=== PATIENT | female | born 1950 | race African-American/Black ===

== ENCOUNTER 2016-07-03 13:29 | Observation (INO) | payer BC ==
[~2016-07-03] VITALS: Ht 167.6 cm; Wt 89.4 kg
[~2016-07-03 13:29] MED LIST: AMLO10TA4 PO; AMLO5TAB4 PO; ASPI-482 PO; ATOR40TA PO; CETI10TA16 PO; CHOL500016 PO; CITA20TA5 PO; DULO30CA2 PO; LISI1TAB5 PO; LOSA1TAB12 PO; METF500T4 PO; NAPR500T8 PO; OLME1TAB PO; RANI150T2 PO; TIOT18CA IH; TIZA4CAP3 PO; TRAM50TA PO; VENTOLIN HFA18 GM INH
[2016-07-03] MEDS ORDERED: ASPIRIN CHEWABLE 81 MG TABLET. PO ONE (14:00)
--- NOTE | 2016-07-03 14:04 | RAD ---
Portable chest, 07/03/2016: History: Hypertension, chest pain Comparison is made to a study from 12/13/2015. The heart size and pulmonary vascularity are normal. No pulmonary infiltrates are seen. There is no evidence of pleural fluid. IMPRESSION: No acute cardiopulmonary abnormality is detected.
[2016-07-03 14:36] LABS: BASO % 1 % (0-3); EOS % 2 % (0-3); HEMATOCRIT 45.3 % (36.0-47.0); HEMOGLOBIN 15.5 g/dL (12.0-15.5); LYMPH # 2.1 x10^3/uL (1.0-4.8); LYMPH % 47 % (24-48); MEAN CORPUSCULAR HEMOGLOBIN 32 pg (25-35); MEAN CORPUSCULAR HGB CONC 34 g/dL (31-37); MEAN CORPUSCULAR VOLUME 95 fL (79-100); MONO % 8 % (0-9); NEUT % 43 % (31-73); PLATELET COUNT 296 x10^3/uL (140-400); RED BLOOD COUNT 4.79 x10^6/uL (3.50-5.40); RED CELL DISTRIBUTION WIDTH 14.3 % (11.5-14.5); WHITE BLOOD COUNT 4.4 x10^3/uL (4.0-11.0)
--- NOTE | 2016-07-03 14:51 | RAD ---
CT of the head without contrast, 07/03/2016: History: Altered mental status, syncope, head injury Comparison is made to a study from 12/13/2015. The ventricles are within normal limits in size. There is no shift of the midline structures. There is no evidence of acute intracranial hemorrhage or mass effect. IMPRESSION: No acute intracranial abnormality is detected. PQRS Compliance Statement: One or more of the following individualized dose reduction techniques were utilized for this examination: 1. Automated exposure control 2. Adjustment of the mA and/or kV according to patient size 3. Use of iterative reconstruction technique
[2016-07-03 14:52] LABS: CALCIUM 9.6 mg/dL (8.5-10.1); CREATININE 0.9 mg/dL (0.6-1.0); GFR 75.6; POTASSIUM 4.7 mmol/L (3.5-5.1)
[2016-07-03 14:58] LABS: ALBUMIN 4.2 g/dL (3.4-5.0); DIRECT BILIRUBIN 0.2 mg/dL (0.0-0.2); TOTAL BILIRUBIN 0.7 mg/dL (0.2-1.0); TOTAL PROTEIN 7.6 g/dL (6.4-8.2)
[2016-07-03] MEDS ORDERED: ONDANSETRON PF 4 MG/2 ML VIAL. IV PRN (15:30)
--- NOTE | 2016-07-03 15:39 | PHYS DOC ---
Past Medical History Past Medical History: Anxiety, Asthma, Bronchitis, CHF, COPD, CVA, Depression, Diabetes-Type II, Hypertension, Hypothyroid, Pneumonia Past Surgical History: Hysterectomy, Tonsillectomy, Other Additional Past Surgical Histo: partial thyroidectomy, varicose veins, cataracts,BLADDER REPAIR Alcohol Use: Heavy Drug Use: None Adult General Chief Complaint Chief Complaint: CHEST PAIN HPI HPI 66-year-old female with a history of diabetes hypertension presenting to the emergency department today with chest pain. She describes her chest pain is on the left side nonradiating intermittent and started approximately 8 AM this morning. It is sharp in nature and worse with exertion and deep breaths. It improves with rest. She denies unilateral leg swelling hemoptysis personal or family history of blood clotting disorders. She denies diaphoresis. Review of systems is negative for abdominal pain nausea vomiting diaphoresis fevers or chills. All other review of systems is negative unless otherwise noted in history of present illness. Review of Systems Review of Systems SEE ABOVE. Current Medications Current Medications Current Medications Medications (Trade) Dose Ordered Sig/Vazquez Start Time Stop Time Status Last Admin Dose Admin Aspirin (Children'S Aspirin) 324 mg 1X ONCE 07/03/16 14:00 07/03/16 14:01 DC 07/03/16 13:58 324 MG Morphine Sulfate 2 mg PRN Q2HR PRN 07/03/16 15:30 07/04/16 15:29 UNV Nitroglycerin (Nitrostat) 0.4 mg PRN Q5MIN PRN 07/03/16 15:30 07/04/16 15:29 UNV Ondansetron HCl (Zofran) 4 mg PRN Q8HRS PRN 07/03/16 15:30 07/04/16 15:29 UNV Allergies Allergies Allergies Coded Allergies Type Severity Reaction Last Updated Verified No Known Drug Allergies 08/10/13 No Physical Exam Physical Exam Constitutional: Well developed, well nourished, no acute distress, non-toxic appearance. HENT: Normocephalic, atraumatic, bilateral external ears normal, oropharynx moist, no oral exudates, nose normal. [] Eyes: PERRLA, EOMI, conjunctiva normal, no discharge. Neck: Normal range of motion, no tenderness, supple, no stridor. [] Cardiovascular:Heart rate regular rhythm, no murmur Lungs & Thorax: Bilateral breath sounds clear to auscultation [] Abdomen: Bowel sounds normal, soft, no tenderness, no masses, no pulsatile masses. [] Skin: Warm, dry, no erythema, no rash. Back: No tenderness, no CVA tenderness. [] Extremities: No tenderness, no cyanosis, no clubbing, ROM intact, no edema. Neurologic: Alert and oriented X 3, normal motor function, normal sensory function, no focal deficits noted. [] Psychologic: Affect normal, judgement normal, mood normal. Current Patient Data Vital Signs Vital Signs Date Time Temp Pulse Resp B/P (MAP) Pulse Ox O2 Delivery O2 Flow Rate FiO2 07/03/16 13:50 97.8 77 19 187/96 (126) 98 Room Air 97.8 Lab Values Laboratory Tests Test 07/03/16 13:45 White Blood Count 4.4 x10^3/uL (4.0-11.0) Red Blood Count 4.79 x10^6/uL (3.50-5.40) Hemoglobin 15.5 g/dL (12.0-15.5) Hematocrit 45.3 % (36.0-47.0) Mean Corpuscular Volume 95 fL (79-100) Mean Corpuscular Hemoglobin 32 pg (25-35) Mean Corpuscular Hemoglobin Concent 34 g/dL (31-37) Red Cell Distribution Width 14.3 % (11.5-14.5) Platelet Count 296 x10^3/uL (140-400) Neutrophils (%) (Auto) 43 % (31-73) Lymphocytes (%) (Auto) 47 % (24-48) Monocytes (%) (Auto) 8 % (0-9) Eosinophils (%) (Auto) 2 % (0-3) Basophils (%) (Auto) 1 % (0-3) Neutrophils # (Auto) 1.9 x10^3uL (1.8-7.7) Lymphocytes # (Auto) 2.1 x10^3/uL (1.0-4.8) Monocytes # (Auto) 0.3 x10^3/uL (0.0-1.1) Eosinophils # (Auto) 0.1 x10^3/uL (0.0-0.7) Basophils # (Auto) 0.0 x10^3/uL (0.0-0.2) Sodium Level 145 mmol/L (136-145) Potassium Level 4.7 mmol/L (3.5-5.1) Chloride Level 107 mmol/L (98-107) Carbon Dioxide Level 26 mmol/L (21-32) Anion Gap 12 (6-14) Blood Urea Nitrogen 12 mg/dL (7-20) Creatinine 0.9 mg/dL (0.6-1.0) Estimated GFR (Cockcroft-Gault) 75.6 Glucose Level 104 mg/dL (70-99) H Calcium Level 9.6 mg/dL (8.5-10.1) Total Bilirubin 0.7 mg/dL (0.2-1.0) Direct Bilirubin 0.2 mg/dL (0.0-0.2) Aspartate Amino Transferase (AST) 17 U/L (15-37) Alanine Aminotransferase (ALT) 20 U/L (14-59) Alkaline Phosphatase 76 U/L (46-116) Troponin I Quantitative < 0.017 ng/mL (0.000-0.055) AI-Plp-J-Type Natriuretic Peptide 90 pg/mL (0-124) Total Protein 7.6 g/dL (6.4-8.2) Albumin 4.2 g/dL (3.4-5.0) Lipase 128 U/L (73-393) Laboratory Tests 07/03/16 13:45 Laboratory Tests 07/03/16 13:45 EKG EKG [] EKG shows sinus rhythm with a regular rate. [place] is mildly leftward. ST segments congruent. Not consistent with ACS. Radiology/Procedures Radiology/Procedures []Chest x-ray reviewed by myself shows no obvious infiltrate or pneumothorax present. No obvious acute cardiopulmonary process present. Course & Med Decision Making Course & Med Decision Making Pertinent Labs and Imaging studies reviewed. (See chart for details) [] 66-year-old female presenting to the emergency department today with chest pain. Vital signs unremarkable. Pertinent physical exam findings were unremarkable. EKG unremarkable. Troponin negative. Given the patient's age and risk factors she was admitted for further evaluation workup and care including cardiology consultation. The patient was then discharged home in stable condition to follow up with their primary care physician over the next 2-3 days. They were to return if their symptoms worsened or if they were concerned for any reason. [id number] discharge instructions and return precautions were given. Patient's questions were answered to their satisfaction. Patient is comfortable plan. Dragon Disclaimer Dragon Disclaimer This electronic medical record was generated, in whole or in part, using a voice recognition dictation system. Departure Departure Impression: Primary Impression: Chest pain Disposition: ADMITTED INPATIENT Admitting Physician: Presley Cam Condition: STABLE Referrals: PRESLEY CAM MD (PCP) EMMA PINEDO MD July 03, 2016 15:39
[2016-07-03] MEDS: NITROGLYCERIN SUBLINGUAL 0.4 MG BOTTLE OF 25. SL PRN ×2 (15:51→16:03)
--- NOTE | 2016-07-03 15:58 | PDOC2 ---
DERIK PANTOJA BRICK LOADER 07/03/16 1558: CARDIAC CONSULT DATE OF CONSULT Date of Consult DATE: 07/03/16 TIME: 15:43 REASON FOR CONSULT Reason for Consult: Chest Pain REFERRING PHYSICIAN Referring Physician: Dr. Dillon SOURCE Source: Chart review, Patient HISTORY OF PRESENT ILLNESS HISTORY OF PRESENT ILLNESS This is a 66 yo female who presented with complaints of chest pain. Patient reports pain began awakening this morning around 8am. Located in her left chest. Describes as stabbing and aching. Worsened with ceratin movements and by pressing on the left chest. Pain has been constant since this morning. Associated with mild SOA. No dizziness, diaphoresis, nausea/vomiting. Went to PT today; therapist checked BP and was concerned it was too high and recommended that she come to the emergency room. Patient reports doing some heavy lifting and work recently, which is abnormal for her. Reports compliance with medications. PAST MEDICAL HISTORY Past Medical History Cardiovascular: HTN, Hyperlipidemia, Other (PVD) Pulmonary: COPD, Pneumonia CENTRAL NERVOUS SYSTEM: CVA, Peripheral neuropathy GI: GERD Psych: Anxiety Musculoskeletal: low back pain, Osteoarthritis Rheumatologic: No pertinent hx Infectious disease: No pertinent hx ENT: No pertinent hx Renal/: No pertinent hx Endocrine: Diabetes (2), Hypothyroidism Dermatology: No pertinent hx PAST SURGICAL HISTORY Past Surgical History Hysterectomy, Other (bladder suspension; thyroidectomy partial) FAMILY HISTORY Family History: Hypertension SOCIAL HISTORY Social History Smoke: <1 pack per day (>40 yrs) ALCOHOL: occasional Drugs: None Lives: with Family CURRENT MEDICATIONS CURRENT MEDICATIONS Current Medications Medications (Trade) Dose Ordered Sig/Vazquez Route PRN Reason Start Time Stop Time Status Last Admin Dose Admin Aspirin (Children'S Aspirin) 324 mg 1X ONCE PO 07/03/16 14:00 07/03/16 14:01 DC 07/03/16 13:58 ALLERGIES ALLERGIES: Coded Allergies: No Known Drug Allergies (Unverified , 08/10/13) ROS Review of System 14 point ROS conducted with pertinent positives noted above in HPI. PHYSICAL EXAM PHYSICAL EXAM General: Alert, Oriented X3, Cooperative, mild distress HEENT: Atraumatic, Mucous membr. moist/pink Lungs: Clear to auscultation, Normal air movement, left chest significant tenderness upon palpation Heart: Regular rate, Normal S1, Normal S2, Other (2/6 systolic murmur to LLS border) Abdomen: Soft, No tenderness Extremities: no edema Skin: No breakdown, No significant lesion Neuro: Normal speech, Sensation intact Psych/Mental Status: Mental status NL, Mood NL MUSCULOSKELETAL: Osteoarthritic changes both hands, VITALS VITALS Vital Signs Date Time Temp Pulse Resp B/P (MAP) Pulse Ox O2 Delivery O2 Flow Rate FiO2 07/03/16 13:50 97.8 77 19 187/96 (126) 98 Room Air 97.8 LABS Lab: Laboratory Tests Test 07/03/16 13:45 White Blood Count 4.4 x10^3/uL (4.0-11.0) Red Blood Count 4.79 x10^6/uL (3.50-5.40) Hemoglobin 15.5 g/dL (12.0-15.5) Hematocrit 45.3 % (36.0-47.0) Mean Corpuscular Volume 95 fL (79-100) Mean Corpuscular Hemoglobin 32 pg (25-35) Mean Corpuscular Hemoglobin Concent 34 g/dL (31-37) Red Cell Distribution Width 14.3 % (11.5-14.5) Platelet Count 296 x10^3/uL (140-400) Neutrophils (%) (Auto) 43 % (31-73) Lymphocytes (%) (Auto) 47 % (24-48) Monocytes (%) (Auto) 8 % (0-9) Eosinophils (%) (Auto) 2 % (0-3) Basophils (%) (Auto) 1 % (0-3) Neutrophils # (Auto) 1.9 x10^3uL (1.8-7.7) Lymphocytes # (Auto) 2.1 x10^3/uL (1.0-4.8) Monocytes # (Auto) 0.3 x10^3/uL (0.0-1.1) Eosinophils # (Auto) 0.1 x10^3/uL (0.0-0.7) Basophils # (Auto) 0.0 x10^3/uL (0.0-0.2) Sodium Level 145 mmol/L (136-145) Potassium Level 4.7 mmol/L (3.5-5.1) Chloride Level 107 mmol/L (98-107) Carbon Dioxide Level 26 mmol/L (21-32) Anion Gap 12 (6-14) Blood Urea Nitrogen 12 mg/dL (7-20) Creatinine 0.9 mg/dL (0.6-1.0) Estimated GFR (Cockcroft-Gault) 75.6 Glucose Level 104 mg/dL (70-99) Calcium Level 9.6 mg/dL (8.5-10.1) Total Bilirubin 0.7 mg/dL (0.2-1.0) Direct Bilirubin 0.2 mg/dL (0.0-0.2) Aspartate Amino Transf (AST/SGOT) 17 U/L (15-37) Alanine Aminotransferase (ALT/SGPT) 20 U/L (14-59) Alkaline Phosphatase 76 U/L (46-116) Troponin I Quantitative < 0.017 ng/mL (0.000-0.055) VL-Czs-D-Type Natriuretic Peptide 90 pg/mL (0-124) Total Protein 7.6 g/dL (6.4-8.2) Albumin 4.2 g/dL (3.4-5.0) Lipase 128 U/L (73-393) ECHOCARDIOGRAM ECHOCARDIOGRAM <Conclusion> The left ventricle is normal size. The left ventricular systolic function is normal and the ejection fraction is within normal range. The Ejection Fraction is 60-65%. There is no significant aortic valvular stenosis. Doppler and Color Flow revealed no significant aortic regurgitation. Doppler and Color Flow revealed trace mitral valve regurgitation. Doppler and Color Flow revealed trace to mild tricuspid regurgitation. The PA pressure was estimated at 32 mmHg. DATE: 06/03/15 1704 HEART CATH HEART CATH Conclusion Normal left main coronary artery. No significant intraluminal coronary artery disease appreciated. Normal left ventricular systolic function with visually estimated ejection fraction of 60-65%. Recommendations Risk factor modification should be continued. DATE: 08/11/13 1140 ASSESSMENT/PLAN ASSESSMENT/PLAN 1. Chest pain, atypical [facility] without significant coronary disease. Echo 05/24 with preserve LV function as above. Initial troponin normal, continue with series EKG SR. Doubt ACS. most probably MSK in origin as pain is easily reproducible with palpation to left chest. will monitor overnight and likely discharge in am with consideration of repeat echo on an outpatient basis. 2. Accelerated HTN resume home antiHTN therapy renal artery duplex 05/24 without evidence of NORMA monitor trend to assess need for further titration Hydralazine IV PRN 3. DM2 treatment per IM 4. HLP check lipids statin therapy 5. Tobaccoism cessation discussed and encouraged. Problems: JOSE BANDA MD 07/03/16 1851: CARDIAC CONSULT ALLERGIES ALLERGIES: Coded Allergies: No Known Drug Allergies (Unverified , 08/10/13) ASSESSMENT/PLAN ASSESSMENT/PLAN Patient seen and examined. Agree with CHROME TANNER's assessment and plan. CP atypical and most probably musculoskeletal. Initial trop normal - monitor series. Doubt ACS. Plan for stress test as outpatient if serial enz negative. Resume home antihypertensives for better BP control Thank you for your consultation. Problems: DERIK PANTOJA APRN July 03, 2016 15:58 JOSE BANDA MD July 03, 2016 18:51
--- NOTE | 2016-07-03 16:35 | EKG ---
[facility] [address] [place] [address] Test Date: 2016-07-03 Test Time: 13:35:24 Pat Name: ANTONIETTA RM Department: Room: [facility] Gender: F Drainman: RAMONITA : 1950 Requested By: EMMA PINEDO Order Number: [id number] Reading MD: Stacia Mccormack Measurements Intervals [place] Rate: 72 P: 51 AL: 130 QRS: -7 QRSD: 86 T: 38 QT: 374 QTc: 416 Interpretive Statements SINUS RHYTHM LEFTWARD AXIS Electronically Signed On 07-05-2016 15:34:15 CDT by Stacia Mccormack
[2016-07-03] MEDS ORDERED: hydrALAZINE 20 MG/ML VIAL. IVP PRN (16:45)
[2016-07-03 17:00] VITALS: BP 142/83
[2016-07-03] MEDS: ASPIRIN ENTERIC COATED 81 MG TABLET.DR. PO SCH (17:16)
[2016-07-03 17:59] VITALS: BP 142/83
[2016-07-03] MEDS ORDERED: DULO60CA44 PO (18:16)
[2016-07-03] MEDS ORDERED: GABA-586 PO (18:16)
[2016-07-03] MEDS ORDERED: METF500T4 PO (18:16)
[2016-07-03] MEDS: metFORMIN 500 MG TABLET PO SCH (18:24)
[2016-07-03] MEDS: GABAPENTIN 300 MG CAPSULE. PO SCH (19:53)
[2016-07-03] MEDS: MORPHINE SULFATE 2 MG/ML DISP.SYRIN. IV PRN (19:53)
[2016-07-03 19:59] VITALS: BP 118/77
[2016-07-03] MEDS ORDERED: ATORVASTATIN CALCIUM 40 MG TABLET. PO SCH (21:00)
[2016-07-03 23:59] VITALS: BP 134/82
[2016-07-04 03:59] VITALS: BP 140/93
[2016-07-04 06:01] LABS: CALCIUM 8.8 mg/dL (8.5-10.1); CREATININE 0.9 mg/dL (0.6-1.0); GFR 75.6
[2016-07-04 06:08] LABS: CHOLESTEROL/HDL RATIO 2.9
[2016-07-04 06:11] LABS: BASO # 0.1 x10^3/uL (0.0-0.2); BASO % 1 % (0-3); EOS % 2 % (0-3); HEMATOCRIT 40.8 % (36.0-47.0); HEMOGLOBIN 13.5 g/dL (12.0-15.5); LYMPH # 2.6 x10^3/uL (1.0-4.8); LYMPH % 53 % (24-48); MEAN CORPUSCULAR HEMOGLOBIN 32 pg (25-35); MEAN CORPUSCULAR HGB CONC 33 g/dL (31-37); MEAN CORPUSCULAR VOLUME 95 fL (79-100); MONO % 8 % (0-9); NEUT % 35 % (31-73); PLATELET COUNT 276 x10^3/uL (140-400); RED BLOOD COUNT 4.29 x10^6/uL (3.50-5.40); RED CELL DISTRIBUTION WIDTH 14.5 % (11.5-14.5); WHITE BLOOD COUNT 4.9 x10^3/uL (4.0-11.0)
[2016-07-04 07:55] VITALS: BP 148/89
[2016-07-04] MEDS ORDERED: amLODIPine BESYLATE 10 MG TABLET PO SCH (09:00)
[2016-07-04] MEDS ORDERED: hydroCHLOROthiazide 25 MG TABLET PO SCH (09:00)
[2016-07-04] MEDS ORDERED: LOSARTAN POTASSIUM 50 MG TABLET. PO SCH (09:00)
[2016-07-04] MEDS: metFORMIN 500 MG TABLET PO SCH (09:08)
[2016-07-04] MEDS: ASPIRIN ENTERIC COATED 81 MG TABLET.DR. PO SCH (09:09)
[2016-07-04] MEDS: GABAPENTIN 300 MG CAPSULE. PO SCH (09:10)
[2016-07-04] MEDS ORDERED: tiZANidine 4 MG TABLET. PO PRN (09:15)
[2016-07-04] MEDS ORDERED: traMADol 50 MG TABLET PO PRN (09:15)
--- NOTE | 2016-07-04 09:15 | PDOC1 ---
History and Physical Date of Admission Date of Admission DATE: 07/03/16 Identification/Chief Complaint Chief Complaint Chest pain Problems: Source Source: Patient History of Present Illness History of Present Illness Pt states that she was starting physical therapy yesterday when she started to complain of left sided chest pain. Her BP was taken and found to be elevated and she was sent to the ER. Pt was admitted for chest pain rule out. Pt states that the pain started yesterday morning when she got out of bed; more on the upper part of the left side of her chest. Throughout the day pain seemed to radiate down into her nipple. She says she is still having the pain now. It is constant. Nothing makes the pain better or worse. She thinks the pain is all the way across her chest now. Was helping her sister move boxes the other day. She has had episodes of chest pain before but they usually disappear within 24 hours. Past Medical History Cardiovascular: HTN, Hyperlipidemia, Other Pulmonary: COPD, Pneumonia CENTRAL NERVOUS SYSTEM: CVA, Periperal neuropathy GI: GERD Heme/Onc: No pertinent hx Hepatobiliary: Cirrhosis Psych: Anxiety Musculoskeletal: low back pain, Osteoarthritis Rheumatologic: Fibromyalgia Infectious disease: No pertinent hx ENT: No pertinent hx Renal/: No pertinent hx Endocrine: Diabetes, Hypothyroidism Dermatology: No pertinent hx Past Surgical History Past Surgical History: Hysterectomy, Other (bladder surgery, thyroidectomy) Family History Family History: Cancer (Prostate), Chronic Bronchitis, Hypertension, Other (DVT ) Social History Smoke: <1 pack per day ALCOHOL: occassional Drugs: None Current Problem List Problem List Problems Medical Problems: (1) Chest pain Status: Acute Problems: Current Medications Current Medications Current Medications Aspirin (Children'S Aspirin) 324 mg 1X ONCE PO Last administered on 07/03/16 13:58; Start 07/03/16 at 14:00; Stop 07/03/16 at 14:01; Status DC Ondansetron HCl (Zofran) 4 mg PRN Q8HRS PRN IV NAUSEA/VOMITING; Start 07/03/16 at 15:30; Stop 07/04/16 at 15:29 Morphine Sulfate 2 mg PRN Q2HR PRN IV PAIN Last administered on 07/03/16 19:53 ; Start 07/03/16 at 15:30; Stop 07/04/16 at 15:29 Nitroglycerin (Nitrostat) 0.4 mg PRN Q5MIN PRN SL CHEST PAIN Last administered on 07/03/16 16:03; Start 07/03/16 at 15:30; Stop 07/04/16 at 15:29 Amlodipine Besylate (Norvasc) 10 mg DAILY PO ; Start 07/04/16 at 09:00 Aspirin (Ecotrin) 81 mg DAILY PO ; Start 07/03/16 at 17:00 Atorvastatin Calcium (Lipitor) 40 mg QHS PO Last administered on 07/03/16 19: 53; Start 07/03/16 at 21:00 Losartan Potassium (Cozaar) 100 mg DAILY PO ; Start 07/04/16 at 09:00 Hydralazine HCl (Apresoline) 10 mg PRN Q4HRS PRN IVP ELEVATED BP, SEE COMMENTS ; Start 07/03/16 at 16:45 Hydrochlorothiazide (Hydrodiuril) 25 mg DAILY PO ; Start 07/04/16 at 09:00 Metformin HCl (Glucophage) 500 mg BIDWMEALS PO Last administered on 07/03/16 18:24; Start 07/03/16 at 18:30 Gabapentin (Neurontin) 300 mg TID PO Last administered on 07/03/16 19:53; Start 07/03/16 at 21:00 Active Scripts Active Norvasc (Amlodipine Besylate) 10 Mg Tablet 10 Mg PO DAILY Hyzaar 100-25 Tablet (Losartan/Hydrochlorothiazide) 1 Each Tablet 1 Tab PO DAILY Zanaflex (Tizanidine Hcl) 4 Mg Capsule 1 Cap PO QHS Lipitor (Atorvastatin Calcium) 40 Mg Tablet 1 Tab PO DAILY Reported Duloxetine Hcl 60 Mg Capsule. 60 Mg PO DAILY Gabapentin 300 Mg Capsule 300 Mg PO TID Metformin Hcl 500 Mg Tablet 500 Mg PO BIDWMEALS Vitamin D3 (Cholecalciferol (Vitamin D3)) 5,000 Unit Tablet 50,000 Unit PO WEEKLY Naproxen 500 Mg Tablet. 500 Mg PO DAILY Tramadol Hcl 50 Mg Tablet 50 Mg PO BID PRN Spiriva (Tiotropium [place]) 18 Mcg Cap.w.dev 2 Inh IH DAILY Aspir 81 (Aspirin) 81 Mg Tablet. 81 Mg PO DAILY Ranitidine Hcl 150 Mg Tablet 150 Mg PO BID Allergies Allergies: Coded Allergies: No Known Drug Allergies (Unverified , 08/10/13) ROS General: No: Chills, Night Sweats PSYCHOLOGICAL ROS: No: Anxiety, Depression Eyes: No Decreased vision, No Eye Pain HEENT: No: Nasal congestion, Sore Throat ALLERGY AND IMMUNOLOGY: No: Hives, Post Nasal Drip Hematological and Lymphatic: No: Bleeding Problems, Blood Clots Breast: No New/Changing Breast Lumps, No Nipple discharge Respiratory: YES: Cough, Shortness of breath, No: Wheezing Cardiovascular: yes Chest Pain, No Palpitations, No Edema Gastrointestinal: Yes Nausea, Yes Vomiting, Yes Abdominal Pain, Yes Diarrhea, Yes Other (pt has N/V/D about once a week) Genitourinary: No Dysuria, No Urgency Musculoskeletal: No Joint Pain, No Muscle Pain Neurological: Yes Numbness/Tingling, No Impaired Coord/balance Skin: No Rash, No Skin Lesion Changes Physical Exam General: Alert, Oriented X3, Cooperative, No acute distress HEENT: Atraumatic, PERRLA, EOMI, Mucous membr. moist/pink Lungs: Clear to auscultation, Normal air movement Heart: RRR, no rubs, no gallops, no murmurs, other (TTP over entire chest wall) Abdomen: Normal bowel sounds, Soft, No tenderness, No hepatosplenomegaly Extremities: No clubbing, No cyanosis, No edema Skin: No rashes, No breakdown, No significant lesion Neuro: Normal speech, Normal tone, Sensation intact, Cranial nerves 3-12 NL Psych/Mental Status: Mental status NL, Mood NL Vitals Vitals Vital Signs Date Time Temp Pulse Resp B/P (MAP) Pulse Ox O2 Delivery O2 Flow Rate FiO2 07/04/16 07:55 98.2 67 18 148/89 (108) 98 Nasal Cannula 2.0 98.2 Labs Labs Laboratory Tests Test 07/03/16 13:45 07/03/16 17:18 07/03/16 21:00 07/03/16 21:26 White Blood Count 4.4 x10^3/uL (4.0-11.0) Red Blood Count 4.79 x10^6/uL (3.50-5.40) Hemoglobin 15.5 g/dL (12.0-15.5) Hematocrit 45.3 % (36.0-47.0) Mean Corpuscular Volume 95 fL (79-100) Mean Corpuscular Hemoglobin 32 pg (25-35) Mean Corpuscular Hemoglobin Concent 34 g/dL (31-37) Red Cell Distribution Width 14.3 % (11.5-14.5) Platelet Count 296 x10^3/uL (140-400) Neutrophils (%) (Auto) 43 % (31-73) Lymphocytes (%) (Auto) 47 % (24-48) Monocytes (%) (Auto) 8 % (0-9) Eosinophils (%) (Auto) 2 % (0-3) Basophils (%) (Auto) 1 % (0-3) Neutrophils # (Auto) 1.9 x10^3uL (1.8-7.7) Lymphocytes # (Auto) 2.1 x10^3/uL (1.0-4.8) Monocytes # (Auto) 0.3 x10^3/uL (0.0-1.1) Eosinophils # (Auto) 0.1 x10^3/uL (0.0-0.7) Basophils # (Auto) 0.0 x10^3/uL (0.0-0.2) Sodium Level 145 mmol/L (136-145) Potassium Level 4.7 mmol/L (3.5-5.1) Chloride Level 107 mmol/L (98-107) Carbon Dioxide Level 26 mmol/L (21-32) Anion Gap 12 (6-14) Blood Urea Nitrogen 12 mg/dL (7-20) Creatinine 0.9 mg/dL (0.6-1.0) Estimated GFR (Cockcroft-Gault) 75.6 Glucose Level 104 mg/dL (70-99) Calcium Level 9.6 mg/dL (8.5-10.1) Total Bilirubin 0.7 mg/dL (0.2-1.0) Direct Bilirubin 0.2 mg/dL (0.0-0.2) Aspartate Amino Transf (AST/SGOT) 17 U/L (15-37) Alanine Aminotransferase (ALT/SGPT) 20 U/L (14-59) Alkaline Phosphatase 76 U/L (46-116) Troponin I Quantitative < 0.017 ng/mL (0.000-0.055) < 0.017 ng/mL (0.000-0.055) EY-Nym-I-Type Natriuretic Peptide 90 pg/mL (0-124) Total Protein 7.6 g/dL (6.4-8.2) Albumin 4.2 g/dL (3.4-5.0) Lipase 128 U/L (73-393) Glucose (Fingerstick) 131 mg/dL (70-99) 108 mg/dL (70-99) Test 07/04/16 03:45 07/04/16 08:01 White Blood Count 4.9 x10^3/uL (4.0-11.0) Red Blood Count 4.29 x10^6/uL (3.50-5.40) Hemoglobin 13.5 g/dL (12.0-15.5) Hematocrit 40.8 % (36.0-47.0) Mean Corpuscular Volume 95 fL (79-100) Mean Corpuscular Hemoglobin 32 pg (25-35) Mean Corpuscular Hemoglobin Concent 33 g/dL (31-37) Red Cell Distribution Width 14.5 % (11.5-14.5) Platelet Count 276 x10^3/uL (140-400) Neutrophils (%) (Auto) 35 % (31-73) Lymphocytes (%) (Auto) 53 % (24-48) Monocytes (%) (Auto) 8 % (0-9) Eosinophils (%) (Auto) 2 % (0-3) Basophils (%) (Auto) 1 % (0-3) Neutrophils # (Auto) 1.7 x10^3uL (1.8-7.7) Lymphocytes # (Auto) 2.6 x10^3/uL (1.0-4.8) Monocytes # (Auto) 0.4 x10^3/uL (0.0-1.1) Eosinophils # (Auto) 0.1 x10^3/uL (0.0-0.7) Basophils # (Auto) 0.1 x10^3/uL (0.0-0.2) Sodium Level 144 mmol/L (136-145) Potassium Level 4.0 mmol/L (3.5-5.1) Chloride Level 107 mmol/L (98-107) Carbon Dioxide Level 26 mmol/L (21-32) Anion Gap 11 (6-14) Blood Urea Nitrogen 17 mg/dL (7-20) Creatinine 0.9 mg/dL (0.6-1.0) Estimated GFR (Cockcroft-Gault) 75.6 Glucose Level 70 mg/dL (70-99) Calcium Level 8.8 mg/dL (8.5-10.1) Troponin I Quantitative < 0.017 ng/mL (0.000-0.055) Triglycerides Level 108 mg/dL (0-150) Cholesterol Level 161 mg/dL (0-200) LDL Cholesterol, Calculated 83 mg/dL (0-100) VLDL Cholesterol, Calculated 22 mg/dL (0-40) Non-HDL Cholesterol Calculated 105 mg/dL (0-129) HDL Cholesterol 56 mg/dL (40-60) Cholesterol/HDL Ratio 2.9 Glucose (Fingerstick) 84 mg/dL (70-99) Laboratory Tests Test 07/03/16 13:45 07/03/16 17:18 07/03/16 21:00 07/03/16 21:26 White Blood Count 4.4 x10^3/uL (4.0-11.0) Red Blood Count 4.79 x10^6/uL (3.50-5.40) Hemoglobin 15.5 g/dL (12.0-15.5) Hematocrit 45.3 % (36.0-47.0) Mean Corpuscular Volume 95 fL (79-100) Mean Corpuscular Hemoglobin 32 pg (25-35) Mean Corpuscular Hemoglobin Concent 34 g/dL (31-37) Red Cell Distribution Width 14.3 % (11.5-14.5) Platelet Count 296 x10^3/uL (140-400) Neutrophils (%) (Auto) 43 % (31-73) Lymphocytes (%) (Auto) 47 % (24-48) Monocytes (%) (Auto) 8 % (0-9) Eosinophils (%) (Auto) 2 % (0-3) Basophils (%) (Auto) 1 % (0-3) Neutrophils # (Auto) 1.9 x10^3uL (1.8-7.7) Lymphocytes # (Auto) 2.1 x10^3/uL (1.0-4.8) Monocytes # (Auto) 0.3 x10^3/uL (0.0-1.1) Eosinophils # (Auto) 0.1 x10^3/uL (0.0-0.7) Basophils # (Auto) 0.0 x10^3/uL (0.0-0.2) Sodium Level 145 mmol/L (136-145) Potassium Level 4.7 mmol/L (3.5-5.1) Chloride Level 107 mmol/L (98-107) Carbon Dioxide Level 26 mmol/L (21-32) Anion Gap 12 (6-14) Blood Urea Nitrogen 12 mg/dL (7-20) Creatinine 0.9 mg/dL (0.6-1.0) Estimated GFR (Cockcroft-Gault) 75.6 Glucose Level 104 mg/dL (70-99) Calcium Level 9.6 mg/dL (8.5-10.1) Total Bilirubin 0.7 mg/dL (0.2-1.0) Direct Bilirubin 0.2 mg/dL (0.0-0.2) Aspartate Amino Transf (AST/SGOT) 17 U/L (15-37) Alanine Aminotransferase (ALT/SGPT) 20 U/L (14-59) Alkaline Phosphatase 76 U/L (46-116) Troponin I Quantitative < 0.017 ng/mL (0.000-0.055) < 0.017 ng/mL (0.000-0.055) XR-Lpv-O-Type Natriuretic Peptide 90 pg/mL (0-124) Total Protein 7.6 g/dL (6.4-8.2) Albumin 4.2 g/dL (3.4-5.0) Lipase 128 U/L (73-393) Glucose (Fingerstick) 131 mg/dL (70-99) 108 mg/dL (70-99) Test 07/04/16 03:45 07/04/16 08:01 White Blood Count 4.9 x10^3/uL (4.0-11.0) Red Blood Count 4.29 x10^6/uL (3.50-5.40) Hemoglobin 13.5 g/dL (12.0-15.5) Hematocrit 40.8 % (36.0-47.0) Mean Corpuscular Volume 95 fL (79-100) Mean Corpuscular Hemoglobin 32 pg (25-35) Mean Corpuscular Hemoglobin Concent 33 g/dL (31-37) Red Cell Distribution Width 14.5 % (11.5-14.5) Platelet Count 276 x10^3/uL (140-400) Neutrophils (%) (Auto) 35 % (31-73) Lymphocytes (%) (Auto) 53 % (24-48) Monocytes (%) (Auto) 8 % (0-9) Eosinophils (%) (Auto) 2 % (0-3) Basophils (%) (Auto) 1 % (0-3) Neutrophils # (Auto) 1.7 x10^3uL (1.8-7.7) Lymphocytes # (Auto) 2.6 x10^3/uL (1.0-4.8) Monocytes # (Auto) 0.4 x10^3/uL (0.0-1.1) Eosinophils # (Auto) 0.1 x10^3/uL (0.0-0.7) Basophils # (Auto) 0.1 x10^3/uL (0.0-0.2) Sodium Level 144 mmol/L (136-145) Potassium Level 4.0 mmol/L (3.5-5.1) Chloride Level 107 mmol/L (98-107) Carbon Dioxide Level 26 mmol/L (21-32) Anion Gap 11 (6-14) Blood Urea Nitrogen 17 mg/dL (7-20) Creatinine 0.9 mg/dL (0.6-1.0) Estimated GFR (Cockcroft-Gault) 75.6 Glucose Level 70 mg/dL (70-99) Calcium Level 8.8 mg/dL (8.5-10.1) Troponin I Quantitative < 0.017 ng/mL (0.000-0.055) Triglycerides Level 108 mg/dL (0-150) Cholesterol Level 161 mg/dL (0-200) LDL Cholesterol, Calculated 83 mg/dL (0-100) VLDL Cholesterol, Calculated 22 mg/dL (0-40) Non-HDL Cholesterol Calculated 105 mg/dL (0-129) HDL Cholesterol 56 mg/dL (40-60) Cholesterol/HDL Ratio 2.9 Glucose (Fingerstick) 84 mg/dL (70-99) VTE Prophylaxis Ordered VTE Prophylaxis Devices: No VTE Pharmacological Prophylaxi: No Assessment/Plan Assessment/Plan Pt is a 66yo AAF admitted for chest pain 1)Chest pain- cardiac enzymes x3 WNL. Pt has multiple risk factors. Had heart catheterization 08/21 that was normal. Cardiology has already seen and it appears is planning on doing outpatient stress test. Will confirm. Think current pain is musculoskeletal in nature, although she is high risk for CAD 2)DM2- previously well controlled with HbA1C of 5.8. Pt continued on Metformin 500mg BID 3)HTN- well controlled. Pt continued on HCTZ 25mg, Losartan 100mg, Amlodipine 10mg 4)HLD- well controlled. Pt continued on Atorvastatin 40mg 5)COPD- pt continued on Albuterol. Normally also on Spiriva. Pt feels that oxygen has been helpful. Will do 6 minute walk to see if patient qualifies for oxygen 6)GERD- pt transitioned to Famotidine from Ranitidine MARIANGEL ACUÑA MD July 04, 2016 09:15
[2016-07-04] MEDS: MORPHINE SULFATE 2 MG/ML DISP.SYRIN. IV PRN (09:29)
[2016-07-04] MEDS ORDERED: DULoxetine HCL 30 MG CAPSULE.DR PO SCH (09:30)
[2016-07-04] MEDS ORDERED: FAMOTIDINE 20 MG TABLET. PO SCH (09:30)
--- NOTE | 2016-07-04 09:54 | PDOC3 ---
Discharge Summary* Date of Admission: July 03, 2016 Date of Discharge: July 04, 2016 Admitting Diagnosis Problems Medical Problems: (1) Chest pain Status: Acute Final Diagnosis Chest pain likely musculoskeletal, DM2, HTN, HLD, COPD, GERD CONSULTS Cardiology Procedures CXR- WNL CT Head- WNL Brief Hospital Course Pt is a 66yo AAF admitted for chest pain 1)Chest pain- cardiac enzymes x3 WNL. Pt has multiple risk factors. Had heart catheterization 08/21 that was normal. Cardiology has already seen and it appears is planning on doing outpatient stress test. Think current pain is musculoskeletal in nature, although she is high risk for CAD 2)DM2- previously well controlled with HbA1C of 5.8. Pt continued on Metformin 500mg BID 3)HTN- well controlled. Pt continued on HCTZ 25mg, Losartan 100mg, Amlodipine 10mg 4)HLD- well controlled. Pt continued on Atorvastatin 40mg 5)COPD- pt continued on Albuterol. Normally also on Spiriva. Pt feels that oxygen has been helpful. Will do 6 minute walk to see if patient qualifies for oxygen prior to discharge 6)GERD- DC'd on Ranitidine Disposition/Orders: D/C to Home CONDITION AT DISCHARGE: Stable Diet: 2 gr sodium, Cardiac Scheduled Amlodipine Besylate (Norvasc), 10 MG PO DAILY Aspirin (Aspir 81), 81 MG PO DAILY, (Reported) Atorvastatin Calcium (Lipitor), 1 TAB PO DAILY Cholecalciferol (Vitamin D3) (Vitamin D3), 50,000 UNIT PO WEEKLY, (Reported) Duloxetine Hcl (Duloxetine Hcl), 60 MG PO DAILY, (Reported) Gabapentin (Gabapentin), 300 MG PO TID, (Reported) Losartan/Hydrochlorothiazide (Hyzaar 100-25 Tablet), 1 TAB PO DAILY Metformin Hcl (Metformin Hcl), 500 MG PO BIDWMEALS, (Reported) Naproxen (Naproxen), 500 MG PO DAILY, (Reported) Ranitidine Hcl (Ranitidine Hcl), 150 MG PO BID, (Reported) Tiotropium [place] (Spiriva), 2 INH IH DAILY, (Reported) Tizanidine Hcl (Zanaflex), 1 CAP PO QHS Scheduled PRN Tramadol Hcl (Tramadol Hcl), 50 MG PO BID PRN for PAIN, (Reported) Discontinued Medications Cetirizine Hcl (Cetirizine Hcl), 10 MG PO DAILY, (Reported) Metformin Hcl (Metformin Hcl), 500 MG PO DAILY, (Reported) PCP Follow up with Dr. Cam within 2 weeks, f/u with Cardiology for outpatient stress test Time Spent Total time spent with patient [] minutes for coordination of care, counseling, and education. MARIANGEL ACUÑA MD July 04, 2016 09:54
[2016-07-04 11:00] VITALS: BP 111/71
[2016-07-04] MEDS ORDERED: IPRATRPIUM/ALBUTEROL 0.5/2.5MG 3 ML NEBU. NEB SCH (12:00)
[2016-07-05] MEDS ORDERED: NON FORMULARY ITEM (Tiotropium Bromide (Spiriva) 2 INH) IH SCH (09:00)
== END 2016-07-04 14:00 | disposition home or self-care (01) ==
LOC: ER 14:54 → 5 SOUTH 15:19
PROVIDERS: ADMIT Family Medicine; ATTEND Family Medicine
DX: R07.89 Other chest pain (principal); I11.0 Hypertensive heart disease with heart failure; E78.5 Hyperlipidemia, unspecified; J44.9 Chronic obstructive pulmonary disease, unspecified; K21.9 Gastro-esophageal reflux disease without esophagitis; E11.42 Type 2 diabetes mellitus with diabetic polyneuropathy; I50.9 Heart failure, unspecified; E03.9 Hypothyroidism, unspecified; F41.9 Anxiety disorder, unspecified; F32.9 Major depressive disorder, single episode, unspecified; M79.7 Fibromyalgia; M19.90 Unspecified osteoarthritis, unspecified site; K74.60 Unspecified cirrhosis of liver; J45.909 Unspecified asthma, uncomplicated; I73.9 Peripheral vascular disease, unspecified; F17.210 Nicotine dependence, cigarettes, uncomplicated; Z82.49 Family history of ischemic heart disease and other diseases of the circulatory system; Z86.73 Personal history of transient ischemic attack (TIA), and cerebral infarction without residual deficits; Z82.5 Family history of asthma and other chronic lower respiratory diseases
CPT/HCPCS: 36415; 70450; 71010; 80048; 80061; 80076; 82947; 83690; 83880; 84484; 85027; 93005; 94250; 94620; 94640; 94760; 96374; 96376; 99285; 99406; G0378; J2270; J7620; G0379

== ENCOUNTER → 2016-08-07 | Outpatient (CLI) | payer BC ==
[~2016-08-07] MED LIST changes: +DULO60CA44 PO; +GABA-586 PO; -OLME1TAB PO; +OLME1TAB21 PO; +REGADENOSON 0.4 MG/5 ML DISP.SYRIN. IV ONE
--- NOTE | 2016-08-07 17:48 | RAD ---
APPROVED REPORT Test Type: Pharmacological Stress Nurse/Tech: Britney Villegas R.N. Test Indications: C/P Cardiac History: htn, recent smoker, copd Medications: See Electronic Medical Record Medical History: See Electronic Medical Record Resting ECG: SR Resting Heart Rate: 66 bpm Resting Blood Pressure: 155/90mmHg Pretest Chest Pain: No chest pain Nurse/Tech Notes S1S2, lungs CTA Consent: The procedure was explained to the patient in lay terms. Informed consent was witnessed. Jorge A eout was entered into [employer]. History and Stress Test performed by RT Meenakshi MccoyR) (N) Pharm. Details Pharmacologic stress testing was performed using 0.4mg per 5ml of regadenoson given intravenously ove r 7-10 seconds. Stress Symptoms dyspnea, nausea, slight chest discomfort scale 4/10 that was resolved by the end of recovery period POST EXERCISE Reason for Termination: Infusion complete Max HR: 95 bpm Max Blood Pressure: 149/64mmHg Blood Pressure response to exercise: Normal blood pressure response during stress. Heart Rate response to exercise: wnl Chest Pain: Yes. slight discomfort scale 4/10- resolved by end of recovery period Arrhythmia: No. ST Change: No. INTERPRETATION Stress EKG Conclusion: The resting EKG shows a sinus rhythm and minimal nonspecific ST-T wave changes . The stress EKG shows no significant changes from baseline. No EKG evidence of stress-induced ischemia. Imaging Protocol IMAGE PROTOCOL: Rest Tc-99m/stress Tc-99m 1 day Rest: Stress: Viability: Radiopharm.Tc99m [id number] Sestamibi [id number] 33mCi Duration 15min. 12min. Img Date 08/07/2016 08/07/2016 Inj-Img [id number]. 60min. Rest Admin Site:IV - Right HandAdministrator:RT Nav (Jay)(N) Stress Admin Site: IV - Right HandAdministrator: RT Darius (Jay)(N) STRESS DATA End Diast. Vol.59.0mlAv. Heart Rate74.0bpm End Syst. Vol.11.0mlCO Index BSA0.0L/min Myocardial Mass99.0gEject. Emlifxpb73.0% Stress Rates Pk. Fill Rate4.04EDV/secLVtime Pk. Fill 236.04msec Pk. Empty Rate5.30ESV/secLVtime Pk. Mydlg094.00msec /3 Pk. Fill1.03EDV/sec Stress Scores Regional WT0.00Summed WT3.00 Regional WM0.00Summed WM0.00 LV Perfusion The stress scans showed no significant defects. The rest scans showed no significant defects. Nuclear imaging shows no reversible ischemia or infarct. Wall Motion Left ventricular systolic function is normal with an ejection fraction of greater than 70%. LV Perf. Quant 17 Seg. SSS0.00 17 Seg. SRS1.00 17 Seg. SDS0.00 Stress Defect Extent (% LAD)0.00Rest Defect Extent (% LAD)0.00Rev. Defect Extent (% LAD)0.00 Stress Defect Extent (% LCX) 0.00Rest Defect Extent (% LCX)0.00Rev. Defect Extent (% LCX)0.00 Stress Defect Extent (% RCA)0.00Rest Defect Extent (% RCA)0.00Rev. Defect Extent (% RCA)0.00 Stress Defect Extent (% HERBIE)0.00Rest Defect Extent (% HERBIE)0.00Rev. Defect Extent (% HERBIE)0.00 Conclusion 1. No EKG evidence of stress-induced ischemia. 2. Nuclear imaging shows no reversible ischemia or infarct. 3. Normal left ventricular systolic function with an ejection fraction of greater than 70%. 4. Low risk Lexiscan nuclear stress test.
--- NOTE | 2016-08-07 17:55 | CARD ---
APPROVED REPORT EXAM: Two-dimensional and M-mode echocardiogram with Doppler and color Doppler. Other Information Quality : GoodHR: 69bpm Rhythm : NSR INDICATION Chest Pain Echo Enhancing Agent Indication: Rule Out Septal Defect Agent/Amount Used: Agitated Saline 8mL 2D DIMENSIONS RVDd3.4 (2.9-3.5cm)Left Atrium(2D)3.0 (1.6-4.0cm) IVSd1.0 (0.7-1.1cm)Aortic Root(2D)3.0 (2.0-3.7cm) LVDd4.2 (3.9-5.9cm)LVOT Diameter2.1 (1.8-2.4cm) PWd1.0 (0.7-1.1cm)LVDs3.0 (2.5-4.0cm) FS (%) 28.4 %SV43.2 ml LVEF(%)55.3 (>50%) Aortic Valve AoV Peak Hollis.116.3cm/sAoV VTI24.8cm AO Peak GR.5.4mmHgLVOT Peak Hollis.90.0cm/s AO Mean GR.3mmHgAVA (VMAX)2.69cm2 Mitral Valve MV E Viojghjj05.8cm/sMV E Peak Gr.3mmHg MV DECEL [id number] A Hdqpqwei20.9cm/s MV E Mean Gr.1mmHgE/A Ratio1.4 MV A [id number] Pulmonary Valve PV Peak Pvzwthsa01.2cm/s Tricuspid Valve TR P. Ezprywxd763gl/sTR Peak Gr.36mmHg Pulmonary Vein S1 Asfufsbs07.9cm/sD2 Huiwmdfy53.5cm/s PVa [id number] LEFT VENTRICLE The left ventricle is normal size. There is normal left ventricular wall thickness. The left ventricu lar systolic function is normal and the ejection fraction is within normal range. The Ejection Fracti on is 55-60%. There is normal LV segmental wall motion. The left ventricular diastolic function and f illing is normal for age. RIGHT VENTRICLE The right ventricle is normal size. There is normal right ventricular wall thickness. The right ventr icular systolic function is normal. ATRIA The left atrium size is normal. The right atrium size is normal. The interatrial septum shows no evid ence for an atrial septal defect or patent foramen ovale as noted on 2-D or Doppler imaging. The atri al septum is mildly aneurysmal. Injection of bubbles documented no interatrial shunt. AORTIC VALVE The aortic valve is mildly thickened. The aortic valve is trileaflet. Doppler and Color Flow revealed no significant aortic regurgitation. There is no significant aortic valvular stenosis. MITRAL VALVE The mitral valve leaflets are mildly thickened. There is no evidence of mitral valve prolapse. There is no mitral valve stenosis. Doppler and Color Flow revealed no mitral valve regurgitation noted. TRICUSPID VALVE Doppler and Color Flow revealed mild tricuspid regurgitation. The pulmonary artery systolic pressure is estimated at 39 mmHg. There is mild pulmonary hypertension. PULMONIC VALVE Doppler and Color Flow revealed no pulmonic valvular regurgitation. There is no pulmonic valvular natasha nosis. GREAT VESSELS The aortic root is normal in size. The ascending aorta is normal in size. The pulmonary artery is nor mal. The IVC is normal in size and collapses >50% with inspiration. PERICARDIAL EFFUSION There is no evidence of significant pericardial effusion. Critical Notification Critical Value: No <Conclusion> The left ventricle is normal size. The left ventricular systolic function is normal and the ejection fraction is within normal range. The Ejection Fraction is 55-60%. The interatrial septum shows no evidence for an atrial septal defect or patent foramen ovale as noted on 2-D or Doppler imaging. The atrial septum is mildly aneurysmal. Injection of bubbles documented no interatrial shunt. There is no significant aortic valvular stenosis. Doppler and Color Flow revealed no significant aortic regurgitation. Doppler and Color Flow revealed no mitral valve regurgitation noted. Doppler and Color Flow revealed mild tricuspid regurgitation. The pulmonary artery systolic pressure is estimated at 39 mmHg. There is mild pulmonary hypertension.
== END | disposition home or self-care (01) ==
LOC: ECHO 07:26
PROVIDERS: ATTEND Internal Medicine Cardiovascular Disease
DX: I07.1 Rheumatic tricuspid insufficiency (principal)
CPT/HCPCS: 78452; 93017; 96374; 96375; 96376; A9500; C8929; J2785

== ENCOUNTER → 2016-10-30 | Outpatient (CLI) | payer BC ==
[~2016-10-30] MED LIST changes: -REGADENOSON 0.4 MG/5 ML DISP.SYRIN. IV ONE
--- NOTE | 2016-10-30 15:32 | RAD ---
CT of the chest without contrast, 10/30/2016: History: Follow-up lung nodule Noncontrast scans were obtained and compared to a study from 08/10/2013. There are emphysematous changes in the lungs with scattered linear parenchymal scars. There are minimal apical pleural opacities compatible with scars. A tiny 4 mm perifissural nodule in the anterior aspect of the right middle lobe is unchanged, indicating a benign etiology. There is a tiny 2-3 mm nodule in the anterolateral aspect of the left upper lobe as seen on image 57 of series #3. In retrospect this was present on the previous study, although better delineated on the current exam due to technical factors. It has shown no definite change. There is a tiny calcified granuloma in the left lung base. There is a tiny 3 mm subpleural nodule seen laterally in the left base on image 184 of series #3. This is better defined than on the previous study due to technical factors, and is probably unchanged. There is an unchanged benign-appearing perifissural nodule in the lateral aspect of the right base as seen on image 201 of series #3. There is mild calcific plaquing of the thoracic aorta without evidence of aneurysm. The heart size is normal. No mediastinal adenopathy is seen. The thyroid gland is enlarged, predominantly on the right. It appears to be unchanged. There is no evidence of pleural fluid. IMPRESSION: 1. Emphysema with scattered parenchymal scars. 2. Old healed granulomatous disease in the chest. 3. Stable small scattered pulmonary nodules as described above. 4. Stable thyroid enlargement. PQRS Compliance Statement: One or more of the following individualized dose reduction techniques were utilized for this examination: 1. Automated exposure control 2. Adjustment of the mA and/or kV according to patient size 3. Use of iterative reconstruction technique
== END | disposition home or self-care (01) ==
LOC: CT 10:41
PROVIDERS: ATTEND Family Medicine
DX: J43.9 Emphysema, unspecified (principal); J84.10 Pulmonary fibrosis, unspecified; E04.9 Nontoxic goiter, unspecified
CPT/HCPCS: 71250

== ENCOUNTER 2016-12-10 09:59 | Emergency (ER) | payer OTHER, BC ==
[2016-12-10 11:25] LABS: ADD MAN DIFF? NO
[2016-12-10 11:28] LABS: BASO % 1 % (0-3); EOS % 3 % (0-3); HEMATOCRIT 36.8 % (36.0-47.0); HEMOGLOBIN 12.5 g/dL (12.0-15.5); LYMPH % 42 % (24-48); MEAN CORPUSCULAR HEMOGLOBIN 32 pg (25-35); MEAN CORPUSCULAR HGB CONC 34 g/dL (31-37); MEAN CORPUSCULAR VOLUME 93 fL (79-100); MONO % 7 % (0-9); NEUT % 48 % (31-73); PLATELET COUNT 355 x10^3/uL (140-400); RED BLOOD COUNT 3.96 x10^6/uL (3.50-5.40); RED CELL DISTRIBUTION WIDTH 15.2 % (11.5-14.5); WHITE BLOOD COUNT 4.9 x10^3/uL (4.0-11.0)
[2016-12-10 11:39] LABS: ANION GAP 11 (6-14); BLOOD UREA NITROGEN 14 mg/dL (7-20); BUN/CREATININE RATIO 16 (6-20); CALCIUM 9.3 mg/dL (8.5-10.1); CARBON DIOXIDE 27 mmol/L (21-32); CHLORIDE 105 mmol/L (98-107); CREATININE 0.9 mg/dL (0.6-1.0); GFR 75.6; GLUCOSE 93 mg/dL (70-99); POTASSIUM 4.7 mmol/L (3.5-5.1); SODIUM 143 mmol/L (136-145)
[2016-12-10 11:46] LABS: TROPONINI < 0.017 ng/mL (0.000-0.055)
[2016-12-10 11:53] LABS: ALBUMIN 3.8 g/dL (3.4-5.0); ALBUMIN/GLOBULIN RATIO 1.1 (1.0-1.7); ALK PHOS 84 U/L (46-116); ALT (SGPT) 24 U/L (14-59); AST (SGOT) 22 U/L (15-37); TOTAL BILIRUBIN 0.4 mg/dL (0.2-1.0); TOTAL PROTEIN 7.3 g/dL (6.4-8.2)
== END 2016-12-10 13:00 | disposition home or self-care (01) ==
LOC: ER 09:59
DX: S93.402A Sprain of unspecified ligament of left ankle, initial encounter (principal); M54.5 Low back pain; R10.9 Unspecified abdominal pain; M54.2 Cervicalgia; F41.9 Anxiety disorder, unspecified; J44.9 Chronic obstructive pulmonary disease, unspecified; I11.0 Hypertensive heart disease with heart failure; I50.9 Heart failure, unspecified; F32.9 Major depressive disorder, single episode, unspecified; E11.9 Type 2 diabetes mellitus without complications; E89.0 Postprocedural hypothyroidism; Z86.73 Personal history of transient ischemic attack (TIA), and cerebral infarction without residual deficits; W10.9XXA Fall (on) (from) unspecified stairs and steps, initial encounter; Y93.89 Activity, other specified; Y92.89 Other specified places as the place of occurrence of the external cause; Y99.8 Other external cause status
CPT/HCPCS: 36415; 70450; 72072; 72100; 72125; 73610; 74022; 80053; 84484; 85025; 93005; 99285-25

== ENCOUNTER → 2017-02-24 | Outpatient (CLI) | payer BC | END | disposition home or self-care (01) | LOC: MAMMO 09:54 | DX: Z12.31 Encounter for screening mammogram for malignant neoplasm of breast (principal) | CPT/HCPCS: 77067 ==

== ENCOUNTER 2017-09-08 08:23 | Day surgery (SDC) | payer BC ==
[~2017-09-08 08:23] MED LIST changes: -AMLO10TA4 PO; -AMLO5TAB4 PO; -ASPI-482 PO; -ATOR40TA PO; -CETI10TA16 PO; -CHOL500016 PO; -CITA20TA5 PO; -DULO30CA2 PO; -DULO60CA44 PO; -GABA-586 PO; +IV RINGERS,LACTATED 1000ML 1,000 ML IV; +LIDOCAINE 1% PF 2 ML VIAL. ID; -LISI1TAB5 PO; -LOSA1TAB12 PO; -METF500T4 PO; +MORPHINE SULFATE 2 MG/ML DISP.SYRIN. IV; -NAPR500T8 PO; -OLME1TAB21 PO; +ONDANSETRON PF 4 MG/2 ML VIAL. IV; +PROCHLORPERAZINE 10 MG/2 ML VIAL. IV; -RANI150T2 PO; -TIOT18CA IH; -TIZA4CAP3 PO; -TRAM50TA PO; -VENTOLIN HFA18 GM INH; +fentaNYL PF VIAL 100 MCG/2 ML VIAL IV
[2017-09-08] MEDS ORDERED: MIDAZOLAM HCL/PF 2 MG/2 ML VIAL. (09:07)
[2017-09-08] MEDS ORDERED: LIDOCAINE 2% PF Vial for OR 5 ML VIAL. (09:07)
[2017-09-08] MEDS ORDERED: LIDOCAINE 1% PF 30 ML VIAL. (09:21)
[2017-09-08] MEDS ORDERED: BUPIVACAINE 0.5% 50 ML VIAL. (09:22)
[2017-09-08 09:28] LABS: POC GLUCOSE 71 mg/dL (70-99)
[2017-09-08] MEDS: CLINDAMYCIN 900MG PREMIX 50 ML IV (10:42)
[2017-09-08] MEDS: LIDOCAINE 1% PF 30 ML VIAL. INJ (10:50)
[2017-09-08] MEDS: BUPIVACAINE 0.5% 50 ML VIAL. INJ (10:50)
[2017-09-08] MEDS ORDERED: PROPOFOL 20 ML IV (10:51)
[2017-09-08 11:12] LABS: POC GLUCOSE 88 mg/dL (70-99)
[2017-09-08] MEDS: HYDROcodone/APAP 5/325MG 1 TAB TABLET PO (11:45)
== END 2017-09-08 12:44 | disposition home or self-care (01) ==
LOC: SURG 08:23
DX: G56.01 Carpal tunnel syndrome, right upper limb (principal); I11.0 Hypertensive heart disease with heart failure; I50.9 Heart failure, unspecified; E78.00 Pure hypercholesterolemia, unspecified; J44.9 Chronic obstructive pulmonary disease, unspecified; Z87.01 Personal history of pneumonia (recurrent); K21.9 Gastro-esophageal reflux disease without esophagitis; M19.90 Unspecified osteoarthritis, unspecified site; F41.9 Anxiety disorder, unspecified; F32.9 Major depressive disorder, single episode, unspecified; Z88.0 Allergy status to penicillin; Z98.42 Cataract extraction status, left eye; Z98.41 Cataract extraction status, right eye; Z96.1 Presence of intraocular lens; Z98.890 Other specified postprocedural states; E11.42 Type 2 diabetes mellitus with diabetic polyneuropathy; Z86.73 Personal history of transient ischemic attack (TIA), and cerebral infarction without residual deficits; Z95.5 Presence of coronary angioplasty implant and graft; Z90.710 Acquired absence of both cervix and uterus; M79.7 Fibromyalgia; F17.200 Nicotine dependence, unspecified, uncomplicated; E89.0 Postprocedural hypothyroidism; Z79.82 Long term (current) use of aspirin; Z79.899 Other long term (current) drug therapy; Z79.84 Long term (current) use of oral hypoglycemic drugs
CPT/HCPCS: 64721; 82962; J2001; J2250; J2704; J3490

== ENCOUNTER → 2018-01-12 | Day surgery (SDC) | payer BC ==
[~2018-01-12] VITALS: Ht 165.1 cm; Wt 77.1 kg
[~2018-01-12] MED LIST changes: +ALEN70TA3 PO; +AMLO10TA4 PO; +AMLO10TA6 PO; +AMLO5TAB4 PO; +AMLO5TAB7 PO; +ASPI-482 PO; +ATOR40TA PO; +ATOR40TA59 PO; +BUPIVACAINE MPF 0.5% 30 ML VIAL. ONE; +CALC-584 PO; +CETI10TA16 PO; +CHOL500016 PO; +CITA20TA6 PO; +CLINDAMYCIN 900MG PREMIX 50 ML IV PRN; +CYCL10TA2 PO; +DEXAMETHASONE SOD PHOS 20 MG/5 ML VIAL. ONE; +DOCU-109 PO; +DULO30CA2 PO; +DULO60CA44 PO; +GABA300C18 PO; +HYDR-3164 PO; +HYDROcodone/APAP 5/325MG 1 TAB TABLET PO ONE; +HYDROmorphone 2 MG/ML VIAL IV PRN; -IV RINGERS,LACTATED 1000ML 1,000 ML IV; +IV RINGERS,LACTATED 1000ML 1,000 ML IV SCH; +LIDOCAINE 1% Multi-Dose 50 ML VIAL. ONE; -LIDOCAINE 1% PF 2 ML VIAL. ID; +LIDOCAINE 1% PF 2 ML VIAL. ID PRN; +LIDOCAINE 1% PF 30 ML VIAL. ONE; +LIDOCAINE 2% PF Vial for OR 5 ML VIAL. ONE; +LISI1TAB5 PO; +LOSA1TAB12 PO; +METF500T16 PO; +METH-37 PO; +MIDAZOLAM HCL/PF 2 MG/2 ML VIAL. ONE; -MORPHINE SULFATE 2 MG/ML DISP.SYRIN. IV; +MORPHINE SULFATE 2 MG/ML VIAL. IV PRN; +NABU500T PO; +NAPR500T8 PO; +OLME1TAB21 PO; +ONDA8TAB9 PO; -ONDANSETRON PF 4 MG/2 ML VIAL. IV; +ONDANSETRON PF 4 MG/2 ML VIAL. IV PRN; +ONDANSETRON PF 4 MG/2 ML VIAL. ONE; +POLY17PO29 PO; +PRED-220 PO; +PRED20TA PO; +PREG150C PO; +PROAIR RESPICL90 MCG IH; -PROCHLORPERAZINE 10 MG/2 ML VIAL. IV; +PROCHLORPERAZINE 10 MG/2 ML VIAL. IV PRN; +PROPOFOL 20 ML IV ONE; +RANI150T2 PO; +TIOT18CA IH; +TIZA4CAP3 PO; +TRAM50TA PO; +VENTOLIN HFA18 GM INH; +VITAMIN B12 IM; -fentaNYL PF VIAL 100 MCG/2 ML VIAL IV; +fentaNYL PF VIAL 100 MCG/2 ML VIAL IV PRN; +fentaNYL PF VIAL 100 MCG/2 ML VIAL ONE
[2018-01-12] MEDS: fentaNYL PF VIAL 100 MCG/2 ML VIAL IV PRN ×2 (08:57→09:08)
--- NOTE | 2018-01-12 09:13 | DISCH ---
DISCHARGE INSTRUCTIONS Condition on Discharge Condition on Discharge: Stable Activity After Discharge Activity Instructions for Disc: No restrictions, Other ROM activity Other activity instructions: wiggle fingers Bathing Instructions: Shower-keep dressing dry Exercise Instruction after Dis: Progress as tolerated Weight Bearing Status after Di: No restrictions, As tolerated Diet after Discharge Diet after Discharge: Cardiac, No Added Salt, Regular Diet Texture: Regular Wound Incision Care Wound/Incision Care: Ice to area for comfort, Keep wound/cast CDI, Keep wound elevated, Change dressing, No wound care needed Other wound/incision instructi: ok to change dressing after 2 days Checks after Discharge Checks after discharge: Check blood sugar, ac/hs Contacting the DR. after DC Call your doctor for: Concerns you may have Follow-Up Follow up with: Faheem in 2wks Treatment/Equipment after DC Adaptive Equipment Issued: None ELSA GOLDBERG II, MD Jan 12, 2018 09:13
[2018-01-12 09:52] VITALS: BP 138/78
--- NOTE | 2018-01-12 11:58 | PDOC4 ---
Operative Note Operative Note Date of procedure: 01/12/2018 Surgeon: Lucho Goldberg Preoperative diagnosis: Left carpal tunnel syndrome Postoperative diagnosis: Same Procedure performed: Open carpal tunnel release, left Anesthesia: [place] block with sedation Tourniquet time: 26 minutes Blood loss: 3 mL Findings: Normal-appearing median nerve Complications: None Reason for procedure: Patient is very pleasant 67-year-old female who felt she had recovered well enough from her successful right carpal tunnel release with myself and wished to proceed with the left side. We reviewed the risks, benefits , and alternatives and she wished to proceed. Description of procedure: Patient was greeted in the preoperative area by myself for the correct extremity was verified and marked. She was taken back to the operative suite and her landmarks were started as she was brought back. Once in the operating, she was transferred gently supine to the operating table and secured the bed with all pressure points padded and had successful placement of a [place] block by the anesthesiology team. She was then administered conscious sedation and monitored by the anesthesiology team. Left upper extremity was then prepped and draped in our usual sterile fashion and we conducted our standard preoperative timeout. I then made an incision over a palmar wrist crease from her distal wrist crease into her palm and incised skin with a scalpel. I used bipolar cautery for hemostasis. I spread down to the palmar fascia with tenotomies and then placed a self-retaining retractor. Palmar fascia was incised in line with the skin incision. Retractor was repositioned. The carpal tunnel ligament, transverse carpal ligament, was identified and sharply transected with a scalpel. I then placed a Ragnell retractor and the distal portion of the incision and spread above and below small remaining portion and transected this with tenotomies. I then repeated this maneuver and an ulnar directed fashion in the proximal portion of the incision to release the distal antebrachial fascia. I used the tip of the tenotomies to palpate along the course of the nerve to help ensure that accomplished a complete release and I was confident I had. The incision was irrigated out thoroughly with sterile saline and the skin was closed with 3-0 nylon in a mattress fashion. The arm and hand were cleansed and dried and a soft bulky dressing was applied followed by an Pravin wrap. She is awake from her sedation, tourniquet let down and she was transferred gently supine to the recovery room cart and taken to the PACU in a stable and extubated condition. Postoperative plan is to discharge her home. Active range of motion at her fingers was encouraged. Wound care was given and written form. She'll follow up with me in 2 weeks, sooner should a problem arise LUCHO GOLDBERG II, MD Jan 12, 2018 11:58
== END | disposition home or self-care (01) ==
LOC: SURG 06:20
PROVIDERS: ATTEND Orthopaedic Surgery Sports Medicine
DX: G56.02 Carpal tunnel syndrome, left upper limb (principal); E11.9 Type 2 diabetes mellitus without complications; I10 Essential (primary) hypertension; E78.5 Hyperlipidemia, unspecified; M51.36 Other intervertebral disc degeneration, lumbar region; G62.9 Polyneuropathy, unspecified; I87.2 Venous insufficiency (chronic) (peripheral); J44.9 Chronic obstructive pulmonary disease, unspecified; E53.9 Vitamin B deficiency, unspecified; F17.210 Nicotine dependence, cigarettes, uncomplicated; E89.0 Postprocedural hypothyroidism; Z82.49 Family history of ischemic heart disease and other diseases of the circulatory system; Z83.6 Family history of other diseases of the respiratory system; Z80.42 Family history of malignant neoplasm of prostate; Z98.890 Other specified postprocedural states; Z90.710 Acquired absence of both cervix and uterus; Z88.0 Allergy status to penicillin; Z91.048 Other nonmedicinal substance allergy status; Z86.73 Personal history of transient ischemic attack (TIA), and cerebral infarction without residual deficits; Z79.899 Other long term (current) drug therapy; Z79.84 Long term (current) use of oral hypoglycemic drugs
CPT/HCPCS: 64721; 82962; J1100; J2001; J2250; J2405; J2704; J3010; J3490

== ENCOUNTER 2018-02-11 14:33 | Emergency (ER) | payer BC ==
[~2018-02-11] VITALS: Ht 170.2 cm; Wt 75.7 kg
[~2018-02-11 14:33] MED LIST changes: -BUPIVACAINE MPF 0.5% 30 ML VIAL. ONE; -CLINDAMYCIN 900MG PREMIX 50 ML IV PRN; -DEXAMETHASONE SOD PHOS 20 MG/5 ML VIAL. ONE; -HYDROcodone/APAP 5/325MG 1 TAB TABLET PO ONE; -HYDROmorphone 2 MG/ML VIAL IV PRN; -IV RINGERS,LACTATED 1000ML 1,000 ML IV SCH; -LIDOCAINE 1% Multi-Dose 50 ML VIAL. ONE; -LIDOCAINE 1% PF 2 ML VIAL. ID PRN; -LIDOCAINE 1% PF 30 ML VIAL. ONE; -LIDOCAINE 2% PF Vial for OR 5 ML VIAL. ONE; -MIDAZOLAM HCL/PF 2 MG/2 ML VIAL. ONE; -MORPHINE SULFATE 2 MG/ML VIAL. IV PRN; -ONDANSETRON PF 4 MG/2 ML VIAL. IV PRN; -ONDANSETRON PF 4 MG/2 ML VIAL. ONE; -PROCHLORPERAZINE 10 MG/2 ML VIAL. IV PRN; -PROPOFOL 20 ML IV ONE; -fentaNYL PF VIAL 100 MCG/2 ML VIAL IV PRN; -fentaNYL PF VIAL 100 MCG/2 ML VIAL ONE
[2018-02-11 15:12] LABS: BASO % 1 % (0-3); EOS # 0.1 x10^3/uL (0.0-0.7); EOS % 1 % (0-3); HEMATOCRIT 41.8 % (36.0-47.0); HEMOGLOBIN 14.7 g/dL (12.0-15.5); LYMPH # 1.9 x10^3/uL (1.0-4.8); LYMPH % 36 % (24-48); MEAN CORPUSCULAR HEMOGLOBIN 32 pg (25-35); MEAN CORPUSCULAR HGB CONC 35 g/dL (31-37); MEAN CORPUSCULAR VOLUME 89 fL (79-100); MONO # 0.4 x10^3/uL (0.0-1.1); MONO % 7 % (0-9); NEUT # 2.9 x10^3uL (1.8-7.7); NEUT % 55 % (31-73); PLATELET COUNT 296 x10^3/uL (140-400); RED BLOOD COUNT 4.68 x10^6/uL (3.50-5.40); RED CELL DISTRIBUTION WIDTH 15.3 % (11.5-14.5); WHITE BLOOD COUNT 5.3 x10^3/uL (4.0-11.0)
--- NOTE | 2018-02-11 15:32 | RAD ---
EXAM: Chest, single view. HISTORY: Chest pain. COMPARISON: 10/30/2016 FINDINGS: A frontal view of the chest obtained. There is no infiltrate, pleural effusion or pneumothorax. There is mild interstitial prominence without focal infiltrate or congestion. The heart is normal in size. There is emphysema. IMPRESSION: No acute pulmonary finding. Electronically signed by: Bhakti Olivares MD (02/11/2018 3:27 PM) [facility]
[2018-02-11 15:35] LABS: CALCIUM 9.9 mg/dL (8.5-10.1); CREATININE 1.1 mg/dL (0.6-1.0); GFR 59.8; POTASSIUM 4.8 mmol/L (3.5-5.1)
[2018-02-11 15:42] LABS: MAGNESIUM 2.1 mg/dL (1.8-2.4); TOTAL BILIRUBIN 0.7 mg/dL (0.2-1.0); TOTAL PROTEIN 8.1 g/dL (6.4-8.2)
--- NOTE | 2018-02-11 15:43 | EKG ---
[facility] [address] [place] [address] Test Date: 2018-02-11 Test Time: 14:40:27 Pat Name: ANTONIETTA RM Department: Room: Gender: F Manager Respiratory Care: : 1950 Requested By: JESSICA GREER Order Number: [id number] Reading MD: Measurements Intervals [place] Rate: 76 P: 48 MD: 124 QRS: 6 QRSD: 86 T: 31 QT: 392 QTc: 445 Interpretive Statements SINUS RHYTHM NON SPECIFIC T ABNORMALITY BORDERLINE ECG No previous ECG available for comparison
[2018-02-11 16:09] LABS: BILIRUBIN,URINE NEGATIVE (NEG); CLARITY,URINE CLEAR; COLOR,URINE YELLOW; NITRITE,URINE NEGATIVE (NEG); PH,URINE 5.5; PROTEIN,URINE NEGATIVE (NEG-TRACE); UROBILINOGEN,URINE 0.2 mg/dL (0.2 mg/dL)
--- NOTE | 2018-02-11 16:12 | PHYS DOC ---
Past Medical History Past Medical History: Anxiety, Asthma, Bronchitis, CHF, COPD, CVA, Depression, Diabetes-Type II, Fibromyalgia, Hypertension, Hypothyroid, Pneumonia, Other Additional Past Medical Histor: OSTEOPOROSIS Past Surgical History: Hysterectomy, Tonsillectomy, Other Additional Past Surgical Histo: partial thyroidectomy,varicose veins,cataracts, BLADDER REPAIR Alcohol Use: Heavy Drug Use: None Adult General Chief Complaint Chief Complaint: CHEST PAIN HPI HPI Patient is a 67 year old female presented to ER today for evaluation of chest pain off and on for about 12 days. Patient also complaint of nonproductive cough , no trouble breathing, no fever. Patient had no history of coronary artery disease, but she has history hypertension, diabetic. She denies any abdominal pain, no nausea vomiting. Chest pain IS WORSE WITH COUGHING OR TAKING A DEEP BREATH or palpation. Patient denied any chest pain or shortness of air at this time. Review of Systems Review of Systems Constitutional: Denies fever or chills [] Eyes: Denies change in visual acuity, redness, or eye pain [] HENT: Denies nasal congestion or sore throat [] Respiratory: POSITIVE cough NO shortness of breath [] Cardiovascular: POSITIVE FOR CHEST PAIN. GI: Denies abdominal pain, nausea, vomiting, bloody stools or diarrhea [] : Denies dysuria or hematuria [] Musculoskeletal: Denies back pain or joint pain [] Integument: Denies rash or skin lesions [] Neurologic: Denies headache, focal weakness or sensory changes [] Endocrine: Denies polyuria or polydipsia [] All other systems were reviewed and found to be within normal limits, except as documented in this note. Current Medications Current Medications Current Medications Medications (Trade) Dose Ordered Sig/Vazquez Start Time Stop Time Status Last Admin Dose Admin Info (CONTRAST GIVEN -- Rx MONITORING) 1 each PRN DAILY PRN 02/11/18 16:15 02/13/18 16:14 Iohexol (Omnipaque 300 Mg/ml) 90 ml 1X ONCE 02/11/18 16:15 02/11/18 16:16 DC 02/11/18 16:40 90 ML Allergies Allergies Allergies Coded Allergies Type Severity Reaction Last Updated Verified Penicillins Allergy Unknown UNKNOWN 01/12/18 Yes adhesive tape Allergy Unknown BURNING FEELING IN THE SKIN 01/12/18 Yes Physical Exam Physical Exam Constitutional: Well developed, well nourished, no acute distress, non-toxic appearance. [] HENT: Normocephalic, atraumatic, bilateral external ears normal, oropharynx moist, no oral exudates, nose normal. [] Eyes: PERRLA, EOMI, conjunctiva normal, no discharge. [] Neck: Normal range of motion, no tenderness, supple, no stridor. [] Cardiovascular:Heart rate regular rhythm, no murmur [] NO EDEMA. Lungs & Thorax: Bilateral breath sounds clear to auscultation, chest is reproducible to palpatio. Abdomen: Bowel sounds normal, soft, no tenderness, no masses, no pulsatile masses. [] Skin: Warm, dry, no erythema, no rash. [] Back: No tenderness, no CVA tenderness. [] Extremities: No tenderness, no cyanosis, no clubbing, ROM intact, no edema. [] Neurologic: Alert and oriented X 3, normal motor function, normal sensory function, no focal deficits noted. [] Psychologic: Affect normal, judgement normal, mood normal. [] Current Patient Data Vital Signs Vital Signs Date Time Temp Pulse Resp B/P (MAP) Pulse Ox O2 Delivery O2 Flow Rate FiO2 02/11/18 14:36 99.0 80 20 149/88 (108) 97 Room Air 99.0 Lab Values Laboratory Tests Test 02/11/18 14:50 02/11/18 15:50 White Blood Count 5.3 x10^3/uL (4.0-11.0) Red Blood Count 4.68 x10^6/uL (3.50-5.40) Hemoglobin 14.7 g/dL (12.0-15.5) Hematocrit 41.8 % (36.0-47.0) Mean Corpuscular Volume 89 fL (79-100) Mean Corpuscular Hemoglobin 32 pg (25-35) Mean Corpuscular Hemoglobin Concent 35 g/dL (31-37) Red Cell Distribution Width 15.3 % (11.5-14.5) H Platelet Count 296 x10^3/uL (140-400) Neutrophils (%) (Auto) 55 % (31-73) Lymphocytes (%) (Auto) 36 % (24-48) Monocytes (%) (Auto) 7 % (0-9) Eosinophils (%) (Auto) 1 % (0-3) Basophils (%) (Auto) 1 % (0-3) Neutrophils # (Auto) 2.9 x10^3uL (1.8-7.7) Lymphocytes # (Auto) 1.9 x10^3/uL (1.0-4.8) Monocytes # (Auto) 0.4 x10^3/uL (0.0-1.1) Eosinophils # (Auto) 0.1 x10^3/uL (0.0-0.7) Basophils # (Auto) 0.0 x10^3/uL (0.0-0.2) Prothrombin Time 13.0 SEC (11.7-14.0) Prothrombin Time INR 1.0 (0.8-1.1) Sodium Level 145 mmol/L (136-145) Potassium Level 4.8 mmol/L (3.5-5.1) Chloride Level 106 mmol/L (98-107) Carbon Dioxide Level 26 mmol/L (21-32) Anion Gap 13 (6-14) Blood Urea Nitrogen 19 mg/dL (7-20) Creatinine 1.1 mg/dL (0.6-1.0) H Estimated GFR (Cockcroft-Gault) 59.8 BUN/Creatinine Ratio 17 (6-20) Glucose Level 105 mg/dL (70-99) H Calcium Level 9.9 mg/dL (8.5-10.1) Magnesium Level 2.1 mg/dL (1.8-2.4) Total Bilirubin 0.7 mg/dL (0.2-1.0) Aspartate Amino Transferase (AST) 17 U/L (15-37) Alanine Aminotransferase (ALT) 16 U/L (14-59) Alkaline Phosphatase 86 U/L (46-116) Creatine Kinase 106 U/L (26-192) Creatine Kinase MB (Mass) 1.6 ng/mL (0.0-3.6) Creatine Kinase MB Relative Index 1.5 % (0-4) Troponin I Quantitative < 0.017 ng/mL (0.000-0.055) VX-Ubt-V-Type Natriuretic Peptide 18 pg/mL (0-124) Total Protein 8.1 g/dL (6.4-8.2) Albumin 4.0 g/dL (3.4-5.0) Albumin/Globulin Ratio 1.0 (1.0-1.7) Lipase 171 U/L (73-393) Urine Collection Type Unknown Urine Color Yellow Urine Clarity Clear Urine pH 5.5 Urine Specific [place] <=1.005 Urine Protein Negative mg/dL (NEG-TRACE) Urine Glucose (UA) Negative mg/dL (NEG) Urine Ketones (Stick) Negative mg/dL (NEG) Urine Blood Negative (NEG) Urine Nitrite Negative (NEG) Urine Bilirubin Negative (NEG) Urine Urobilinogen Dipstick 0.2 mg/dL (0.2 mg/dL) Urine Leukocyte Esterase Negative (NEG) Urine RBC 0 /HPF (0-2) Urine WBC 0 /HPF (0-4) Urine Squamous Epithelial Cells Few /LPF Urine Bacteria 0 /HPF (0-FEW) Laboratory Tests 02/11/18 14:50 Laboratory Tests 02/11/18 14:50 EKG EKG EKG READ BY THIS PHYSICIAN AT 1443, RATE OF 77 BPM, NO STEMI, SINUS RHYTHM, NONSPECIFIC T wave abnormality. Radiology/Procedures Radiology/Procedures [][facility] [address] [place] [address] IMAGING REPORT Signed PATIENT: ANTONIETTA RM ACCOUNT: [id number] : 1950 LOCATION: ER AGE: 67 SEX: F EXAM STATUS: PRE ER ORD. PHYSICIAN: JESSICA GREER DO REASON: CHEST PAIN PROCEDURE: PORTABLE CHEST 1V EXAM: Chest, single view. HISTORY: Chest pain. COMPARISON: 10/30/2016 FINDINGS: A frontal view of the chest obtained. There is no infiltrate, pleural effusion or pneumothorax. There is mild interstitial prominence without focal infiltrate or congestion. The heart is normal in size. There is emphysema. IMPRESSION: No acute pulmonary finding. Electronically signed by: Bhakti Lomeli MD (02/11/2018 3:27 PM) [place] [id number] DICTATED and SIGNED BY: BHAKTI LOMELI MD DATE: 02/11/18 1526 Course & Med Decision Making Course & Med Decision Making Pertinent Labs and Imaging studies reviewed. (See chart for details) Patient has pleuritic chest pain off and on for twelve days. EKG and cardiac enzymes were normal. CT scan of her chest to evaluate for PE was pending at this time. Patient's care was endorsed to Dr. Mauri Solano at 6 pm, shift change. Dragon Disclaimer Dragon Disclaimer This electronic medical record was generated, in whole or in part, using a voice recognition dictation system. Departure Departure Referrals: ALONZO FLOYD MD (PCP) JESSICA GREER DO Feb 11, 2018 16:12
[2018-02-11] MEDS ORDERED: IOHEXOL 300 MG/ML 100ML VIAL. IV ONE (16:15)
[2018-02-11] MEDS ORDERED: CONTRAST GIVEN. MC PRN (16:15)
[2018-02-11 16:19] LABS: BACTERIA,URINE 0 /HPF (0-FEW); RBC,URINE 0 /HPF (0-2); SQUAMOUS EPITHELIAL CELL,UR FEW /LPF; WBC,URINE 0 /HPF (0-4)
--- NOTE | 2018-02-11 18:37 | RAD ---
PQRS Compliance Statement: One or more of the following individualized dose reduction techniques were utilized for this examination: 1. Automated exposure control 2. Adjustment of the mA and/or kV according to patient size 3. Use of iterative reconstruction technique CT CHEST WITH CONTRAST, PULMONARY ANGIOGRAM History: chest pain, shortness of breath, Comparison: CT chest without contrast, October 30, 2016. Technique: Helical CT of the chest was performed after the administration of 90 cc of Omnipaque 300 intravenous contrast according to PE protocol. Axial and coronal reconstructions were obtained. 3-D MIP images were constructed to better evaluate the pulmonary arteries. Findings: Pulmonary arteries are adequately opacified. There is no evidence of pulmonary embolism. There is no thoracic aortic dissection. Great vessels are normal caliber. Right larger than left thyroid goiter is unchanged. Slight leftward deviation of the trachea is unchanged. No adenopathy in the chest. Cardiac size normal, no pericardial effusion. There is no pleural effusion. The central airways are patent. There is moderate upper lung centrilobular emphysema. There is a 6 m stable nodule in the right middle lobe along the minor fissure, image 53. There is mild atelectasis or scarring in the bilateral lower lobes. Tiny subpleural nodule in the lateral left lower lobe is stable, image 94. Visualized upper abdomen is unremarkable. No compression fracture of the thoracic spine. IMPRESSION: 1. There is no CT evidence of pulmonary embolus. 2. Mild atelectasis or scarring in the dependent lower lobes. 3. Stable nodule in the right middle lobe. 4. Moderate upper lobe centrilobular emphysema. 5. Redemonstrated thyroid goiter. Electronically signed by: Demetrio Goldberg MD (02/11/2018 6:33 PM) [facility]
[2018-02-11 19:36] VITALS: BP 137/73
[2018-02-11] MEDS ORDERED: TRAM50TA PO (19:41)
[2018-02-11] MEDS ORDERED: MELO7.5T29 PO (19:41)
== END 2018-02-11 19:53 | disposition home or self-care (01) ==
LOC: ER 14:33
DX: R07.81 Pleurodynia (principal); R05 Cough; J43.2 Centrilobular emphysema; I11.0 Hypertensive heart disease with heart failure; I50.9 Heart failure, unspecified; E03.9 Hypothyroidism, unspecified; E11.9 Type 2 diabetes mellitus without complications; F41.9 Anxiety disorder, unspecified; F32.9 Major depressive disorder, single episode, unspecified; Z90.710 Acquired absence of both cervix and uterus; Z98.890 Other specified postprocedural states; Z88.0 Allergy status to penicillin; Z88.8 Allergy status to other drugs, medicaments and biological substances
CPT/HCPCS: 36415; 71045; 71275; 80053; 81001; 82550; 82553; 83690; 83735; 83880; 84484; 85025; 85610; 93005; 99284; Q9967

== ENCOUNTER 2018-06-06 16:31 | Emergency (ER) | payer BC ==
[~2018-06-06] VITALS: Ht 167.6 cm; Wt 81.6 kg
[~2018-06-06 16:31] MED LIST changes: -AMLO10TA6 PO; +AMLO10TA8 PO; +AMLO5TAB10 PO; -AMLO5TAB7 PO; +MELO7.5T29 PO
[2018-06-06] MEDS ORDERED: ACETAMINOPHEN 500 MG TABLET PO ONE (17:30)
[2018-06-06 17:32] LABS: BASO % 1 % (0-3); EOS # 0.1 x10^3/uL (0.0-0.7); EOS % 3 % (0-3); HEMATOCRIT 35.5 % (36.0-47.0); HEMOGLOBIN 12.1 g/dL (12.0-15.5); LYMPH % 46 % (24-48); MEAN CORPUSCULAR HEMOGLOBIN 32 pg (25-35); MEAN CORPUSCULAR HGB CONC 34 g/dL (31-37); MEAN CORPUSCULAR VOLUME 93 fL (79-100); MONO # 0.4 x10^3/uL (0.0-1.1); MONO % 8 % (0-9); NEUT # 1.8 x10^3uL (1.8-7.7); NEUT % 42 % (31-73); PLATELET COUNT 321 x10^3/uL (140-400); RED BLOOD COUNT 3.82 x10^6/uL (3.50-5.40); RED CELL DISTRIBUTION WIDTH 14.7 % (11.5-14.5); WHITE BLOOD COUNT 4.3 x10^3/uL (4.0-11.0)
[2018-06-06 17:39] LABS: CALCIUM 9.1 mg/dL (8.5-10.1); GFR 66.5; POTASSIUM 4.3 mmol/L (3.5-5.1)
[2018-06-06 17:45] LABS: ALBUMIN 3.6 g/dL (3.4-5.0); ALBUMIN/GLOBULIN RATIO 1.1 (1.0-1.7); TOTAL BILIRUBIN 0.3 mg/dL (0.2-1.0)
[2018-06-06 18:05] VITALS: BP 145/73
--- NOTE | 2018-06-06 18:09 | RAD ---
CT HEAD WO CONTRAST Indication: HEADACHE, HX OF CVA
PREVIOUS Exposure: One or more of the following individualized dose reduction techniques were utilized for this examination: 1. Automated exposure control 2. Adjustment of the mA and/or kV according to patient size 3. Use of iterative reconstruction technique. Technique: Standard imaging without intravenous contrast. Comparison with December 10, 2016 images but no available report. Posterior fossa is unremarkable. No evidence of acute intracranial hemorrhage, mass effect or midline shift. Low-density in the white matter bilaterally, a nonspecific finding, but which is commonly due to chronic small vessel ischemic disease in a patient of this age. The orbits appear symmetric, partially visualized. Partially visualized sinuses are clear. No evidence of depressed skull fracture. IMPRESSION: No evidence of acute intracranial hemorrhage or mass effect. Electronically signed by: Presley Santos MD (06/06/2018 6:06 PM) [facility]
[2018-06-06] MEDS ORDERED: LORA10TA68 PO (19:00)
--- NOTE | 2018-06-06 19:22 | PHYS DOC ---
Past Medical History Past Medical History: Anxiety, Asthma, Bronchitis, CHF, COPD, CVA, Depression, Diabetes-Type II, Fibromyalgia, Hypertension, Hypothyroid, Pneumonia, Other Additional Past Medical Histor: OSTEOPOROSIS Past Surgical History: Hysterectomy, Tonsillectomy, Other Additional Past Surgical Histo: partial thyroidectomy,varicose veins,cataracts,BLADDER REPAIR Alcohol Use: Heavy Drug Use: None Adult General Chief Complaint Chief Complaint: HEADACHE HPI HPI Patient is a 68 year old female with multiple medical problems including fibromyalgia multiple as noted above who is presenting with basically she tells me that her face feels funny feels like there is a vibration almost like her head is in a bowl of Jell-O. She says she feels similar to the last time she had a stroke. Really not really much of a headache it's more like this weird vibration feeling she tells me. She also is worried about her ear she says that sometimes they pop and some time she feels reading in her ears. Arms and legs are normal no head injury no fever no other symptoms. Review of Systems Review of Systems Constitutional: Denies fever or chills [] Eyes: Denies change in visual acuity, redness, or eye pain [] Cardiovascular: No additional information not addressed in HPI [] GI: Denies abdominal pain, nausea, vomiting, bloody stools or diarrhea [] : Denies dysuria or hematuria [] Musculoskeletal: Denies back pain or joint pain [] All other systems were reviewed and found to be within normal limits, except as documented in this note. Current Medications Current Medications Current Medications Medications (Trade) Dose Ordered Sig/[facility] Start Time Stop Time Status Last Admin Dose Admin Acetaminophen (Tylenol) 1,000 mg 1X ONCE 06/06/18 17:30 06/06/18 17:31 DC 06/06/18 17:52 1,000 MG Allergies Allergies Allergies Coded Allergies Type Severity Reaction Last Updated Verified Penicillins Allergy Unknown UNKNOWN 01/12/18 Yes adhesive tape Allergy Unknown BURNING FEELING IN THE SKIN 01/12/18 Yes Physical Exam Physical Exam Constitutional: Well developed, well nourished, no acute distress, non-toxic appearance. [] HENT: Normocephalic, atraumatic, bilateral external ears normal, oropharynx moist, no oral exudates, nose normal. [] jayne right side no erythema or bulging. no temporal artery ttp noted Eyes: PERRLA, EOMI, conjunctiva normal, no discharge. [] Neck: Normal range of motion, no tenderness, supple, no stridor. [] Cardiovascular:Heart rate regular rhythm, no murmur [] Lungs & Thorax: Bilateral breath sounds clear to auscultation [] Abdomen: Bowel sounds normal, soft, no tenderness, no masses, no pulsatile masses. [] Skin: Warm, dry, no erythema, no rash. [] Back: No tenderness, no CVA tenderness. [] Extremities: No tenderness, no cyanosis, no clubbing, ROM intact, no edema. [] Neurologic: Alert and oriented X 3, normal motor function, normal sensory function, no focal deficits noted. [] fnf intact. Psychologic: Affect normal, judgement normal, mood normal. [] Current Patient Data Vital Signs Vital Signs Date Time Temp Pulse Resp B/P (MAP) Pulse Ox O2 Delivery O2 Flow Rate FiO2 06/06/18 16:54 98.3 64 20 183/88 (119) 99 Room Air 98.3 Lab Values Laboratory Tests Test 06/06/18 17:13 White Blood Count 4.3 x10^3/uL (4.0-11.0) Red Blood Count 3.82 x10^6/uL (3.50-5.40) Hemoglobin 12.1 g/dL (12.0-15.5) Hematocrit 35.5 % (36.0-47.0) L Mean Corpuscular Volume 93 fL (79-100) Mean Corpuscular Hemoglobin 32 pg (25-35) Mean Corpuscular Hemoglobin Concent 34 g/dL (31-37) Red Cell Distribution Width 14.7 % (11.5-14.5) H Platelet Count 321 x10^3/uL (140-400) Neutrophils (%) (Auto) 42 % (31-73) Lymphocytes (%) (Auto) 46 % (24-48) Monocytes (%) (Auto) 8 % (0-9) Eosinophils (%) (Auto) 3 % (0-3) Basophils (%) (Auto) 1 % (0-3) Neutrophils # (Auto) 1.8 x10^3uL (1.8-7.7) Lymphocytes # (Auto) 2.0 x10^3/uL (1.0-4.8) Monocytes # (Auto) 0.4 x10^3/uL (0.0-1.1) Eosinophils # (Auto) 0.1 x10^3/uL (0.0-0.7) Basophils # (Auto) 0.0 x10^3/uL (0.0-0.2) Sodium Level 146 mmol/L (136-145) H Potassium Level 4.3 mmol/L (3.5-5.1) Chloride Level 109 mmol/L (98-107) H Carbon Dioxide Level 28 mmol/L (21-32) Anion Gap 9 (6-14) Blood Urea Nitrogen 15 mg/dL (7-20) Creatinine 1.0 mg/dL (0.6-1.0) Estimated GFR (Cockcroft-Gault) 66.5 BUN/Creatinine Ratio 15 (6-20) Glucose Level 98 mg/dL (70-99) Calcium Level 9.1 mg/dL (8.5-10.1) Total Bilirubin 0.3 mg/dL (0.2-1.0) Aspartate Amino Transferase (AST) 13 U/L (15-37) L Alanine Aminotransferase (ALT) 16 U/L (14-59) Alkaline Phosphatase 70 U/L (46-116) Total Protein 7.0 g/dL (6.4-8.2) Albumin 3.6 g/dL (3.4-5.0) Albumin/Globulin Ratio 1.1 (1.0-1.7) Laboratory Tests 06/06/18 17:13 Laboratory Tests 06/06/18 17:13 EKG EKG [] Radiology/Procedures Radiology/Procedures [] Impressions: Comparison with December 10, 2016 images but no available report. Posterior fossa is unremarkable. No evidence of acute intracranial hemorrhage, mass effect or midline shift. Low-density in the white matter bilaterally, a nonspecific finding, but which is commonly due to chronic small vessel ischemic disease in a patient of this age. The orbits appear symmetric, partially visualized. Partially visualized sinuses are clear. No evidence of depressed skull fracture. IMPRESSION: No evidence of acute intracranial hemorrhage or mass effect. Electronically signed by: Presley Santos MD (06/06/2018 6:06 PM) [facility] DICTATED and SIGNED BY: PRESLEY SANTOS MD DATE: 06/06/181805 Course & Med Decision Making Course & Med Decision Making Pertinent Labs and Imaging studies reviewed. (See chart for details) []68-year-old female presenting with A Facial/Head Sensation best described as vibratory Neurologically Intact No Temporal Artery Tenderness Head CT Was Negative Patient Was Observed in the ER Given Tylenol She Dag[place] Better There Are Some Ear Type Symptoms May Be Claritin Will Help Perhaps It Is Eustachian Tube Dysfunction Reassurance and Return Precautions Were Advised. Dragon Disclaimer Dragon Disclaimer This electronic medical record was generated, in whole or in part, using a voice recognition dictation system. Departure Departure Impression: Primary Impression: Headache Disposition: HOME, SELF-CARE Condition: STABLE Patient Instructions: Headache, FAQs Scripts Loratadine (CLARITIN) 10 Mg Tablet 1 TAB PO DAILY, #30 TAB 0 Refills Prov: REBEL REYNOLDS MD 06/06/18 REBEL REYNOLDS MD Jun 06, 2018 19:22
== END 2018-06-06 19:20 | disposition home or self-care (01) ==
LOC: ER 16:31
DX: R51 Headache (principal); I11.0 Hypertensive heart disease with heart failure; I50.9 Heart failure, unspecified; E03.9 Hypothyroidism, unspecified; J44.9 Chronic obstructive pulmonary disease, unspecified; F41.9 Anxiety disorder, unspecified; F32.9 Major depressive disorder, single episode, unspecified; Z86.73 Personal history of transient ischemic attack (TIA), and cerebral infarction without residual deficits; F10.20 Alcohol dependence, uncomplicated; Y90.9 Presence of alcohol in blood, level not specified; Z88.0 Allergy status to penicillin; Z88.8 Allergy status to other drugs, medicaments and biological substances
CPT/HCPCS: 36415; 70450; 80053; 85025; 99285-25

== ENCOUNTER 2021-05-11 13:09 | Inpatient (IN) | payer BC ==
[~2021-05-11] VITALS: Ht 170.2 cm; Wt 57.5 kg
[~2021-05-11 13:09] MED LIST changes: +AMLO-186 PO; +AMLO-187 PO; -AMLO10TA8 PO; -AMLO5TAB10 PO; +AMOX1TAB58 PO; +CYCL10TA19 PO; -CYCL10TA2 PO; -DULO60CA44 PO; +DULO60CA45 PO; +LISI1TAB37 PO; -LISI1TAB5 PO; +LORA10TA68 PO; -NABU500T PO; +NABU500T11 PO
[2021-05-11 15:30] LABS: BASO % 1 % (0-3); EOS % 0 % (0-3); HEMATOCRIT 39.7 % (36.0-47.0); HEMOGLOBIN 13.6 g/dL (12.0-15.5); LYMPH # 0.8 x10^3/uL (1.0-4.8); LYMPH % 15 % (24-48); MEAN CORPUSCULAR HEMOGLOBIN 37 pg (25-35); MEAN CORPUSCULAR HGB CONC 34 g/dL (31-37); MEAN CORPUSCULAR VOLUME 109 fL (79-100); MONO # 0.2 x10^3/uL (0.0-1.1); MONO % 4 % (0-9); NEUT # 4.3 x10^3/uL (1.8-7.7); NEUT % 81 % (31-73); PLATELET COUNT 281 x10^3/uL (140-400); RED BLOOD COUNT 3.65 x10^6/uL (3.50-5.40); RED CELL DISTRIBUTION WIDTH 17.4 % (11.5-14.5); WHITE BLOOD COUNT 5.3 x10^3/uL (4.0-11.0)
[2021-05-11] MEDS ORDERED: IV NORMAL SALINE 1000ML BAG 1,000 ML IV ONE (15:30)
--- NOTE | 2021-05-11 15:35 | PHYS DOC ---
Past Medical History Past Medical History: Anxiety, Asthma, Bronchitis, CHF, COPD, CVA, Depression, Diabetes-Type II, Diverticulitis, Fibromyalgia, Hypertension, Hypothyroid, Pneumonia, Other Additional Past Medical Histor: OSTEOPOROSIS, Past Surgical History: Hysterectomy, Tonsillectomy, Other Additional Past Surgical Histo: partial thyroidectomy,varicose veins,cataracts,BLADDER REPAIR, CTR Smoking Status: Current Every Day Smoker Alcohol Use: Occasionally Drug Use: None General Adult EDM: Chief Complaint: ABDOMINAL PAIN HPI: HPI: Patient is a 71-year-old female that presents today with abdominal pain. Patient states the abdominal pain started yesterday, she states she has a past medical history of diverticulitis and feels this is a flareup of this. Patient states she has had increased nausea but no vomiting, she states that her last bowel movement was of last week, she states that it was normal for her, she said she has had this sensation of having to go the bathroom but is unable to do so. Patient denies chest pain, shortness of air, fever, chills, or diarrhea stools or blood in her stool. Review of Systems: Review of Systems: Constitutional: Denies fever or chills. [] Eyes: Denies change in visual acuity. [] HENT: Denies nasal congestion or sore throat. [] Respiratory: Denies cough or shortness of breath. [] Cardiovascular: Denies chest pain or edema. [] GI: abdominal pain, nausea, DENIES vomiting, bloody stools or diarrhea. [] : Denies dysuria. [] Musculoskeletal: Denies back pain or joint pain. [] Integument: Denies rash. [] Neurologic: Denies headache, focal weakness or sensory changes. [] Endocrine: Denies polyuria or polydipsia. [] Lymphatic: Denies swollen glands. [] Psychiatric: Denies depression or anxiety. [] Heart Score: C/O Chest Pain: No Risk Factors: Risk Factors: DM, Current or recent (<one month) smoker, HTN, HLP, family history of CAD, obesity. Risk Scores: Score 0 - 3: 2.5% MACE over next 6 weeks - Discharge Home Score 4 - 6: 20.3% MACE over next 6 weeks - Admit for Clinical Observation Score 7 - 10: 72.7% MACE over next 6 weeks - Early Invasive Strategies Current Medications: Current Medications Medications (Trade) Dose Ordered Sig/Vazquez Start Time Stop Time Status Last Admin Dose Admin Sodium Chloride 1,000 ml @ 999 mls/hr 1X ONCE 05/11/21 15:30 05/11/21 16:30 Allergies: Allergies: Allergies Coded Allergies Type Severity Reaction Last Updated Verified Penicillins Allergy Intermediate 05/11/21 Yes adhesive tape Allergy Intermediate BURNING FEELING IN THE SKIN 05/11/21 Yes Physical Exam: PE: Constitutional: Well developed, well nourished, no acute distress, non-toxic appearance. [] HENT: Normocephalic, atraumatic, bilateral external ears normal, oropharynx moist, no oral exudates, nose normal. [] Eyes: PERRLA, EOMI, conjunctiva normal, no discharge. [] Neck: Normal range of motion, no tenderness, supple, no stridor. [] Cardiovascular:Heart rate regular rhythm, no murmur [] Lungs & Thorax: Bilateral breath sounds clear to auscultation [] Abdomen: Bowel sounds normal, soft, diffuse tenderness, no masses, no pulsatile masses. [] Skin: Warm, dry, no erythema, no rash. [] Back: No tenderness, no CVA tenderness. [] Extremities: No tenderness, no cyanosis, no clubbing, ROM intact, no edema. [] Neurologic: Alert and oriented X 3, normal motor function, normal sensory function, no focal deficits noted. [] Psychologic: Affect normal, judgement normal, mood normal. [] Current Patient Data: Labs: Laboratory Tests Test 05/11/21 15:05 White Blood Count 5.3 x10^3/uL (4.0-11.0) Red Blood Count 3.65 x10^6/uL (3.50-5.40) Hemoglobin 13.6 g/dL (12.0-15.5) Hematocrit 39.7 % (36.0-47.0) Mean Corpuscular Volume 109 fL (79-100) H Mean Corpuscular Hemoglobin 37 pg (25-35) H Mean Corpuscular Hemoglobin Concent 34 g/dL (31-37) Red Cell Distribution Width 17.4 % (11.5-14.5) H Platelet Count 281 x10^3/uL (140-400) Neutrophils (%) (Auto) 81 % (31-73) H Lymphocytes (%) (Auto) 15 % (24-48) L Monocytes (%) (Auto) 4 % (0-9) Eosinophils (%) (Auto) 0 % (0-3) Basophils (%) (Auto) 1 % (0-3) Neutrophils # (Auto) 4.3 x10^3/uL (1.8-7.7) Lymphocytes # (Auto) 0.8 x10^3/uL (1.0-4.8) L Monocytes # (Auto) 0.2 x10^3/uL (0.0-1.1) Eosinophils # (Auto) 0.0 x10^3/uL (0.0-0.7) Basophils # (Auto) 0.0 x10^3/uL (0.0-0.2) Laboratory Tests 05/11/21 15:05 Vital Signs: Vital Signs Date Time Temp Pulse Resp B/P (MAP) Pulse Ox O2 Delivery O2 Flow Rate FiO2 05/11/21 14:47 98.5 72 16 175/84 (114) 100 Room Air 98.5 Vital Signs Date Time Temp Pulse Resp B/P (MAP) Pulse Ox O2 Delivery O2 Flow Rate FiO2 05/11/21 14:47 98.5 72 16 175/84 (114) 100 Room Air 98.5 EKG: EKG: [] Radiology/Procedures: Radiology/Procedures: REASON: abdominal pain hx of diverticulosis PROCEDURE: CT ABD PELV W/ IV CONTRST ONLY EXAM: CT Abdomen and Pelvis with IV contrast CLINICAL HISTORY: Reason: abdominal pain hx of diverticulosis / Spl. Instructions: OMNI 300 INJ. 75 MLS / History: . COMPARISON: 09/16/2020 TECHNIQUE: Helical CT of the abdomen and pelvis was performed following the administration of intravenous contrast. Axial, coronal and sagittal reformatted images were generated. PQRS compliance statement - One or more of the following individualized dose reduction techniques were utilized for this study: 1. Automated exposure control 2. Adjustment of the mA and/or kV according to patient size 3. Use of iterative reconstruction technique FINDINGS: Lower Chest: Visualized lung bases are clear. Heart size is normal. Abdomen and Pelvis: Diffuse hepatic steatosis with increased focal fat adjacent to the falciform ligament. No suspicious hepatic lesions. Gallbladder is dilated without wall thickening or pericholecystic inflammation. No significant biliary ductal dilation. The spleen, adrenals, and pancreas are unremarkable. Symmetric renal nephrograms. Bilateral subcentimeter hypoattenuating foci are too small to characterize favoring simple cysts. No obstructing nephrolithiasis or hydroureteronephrosis. Stomach is decompressed accentuating the wall thickness. No evidence of bowel obstruction. There is mild wall thickening involving the distal transverse colon and the majority of the descending colon this may be due to to underdistention or mild colitis. Moderate colonic diverticulosis without evidence of diverticulitis. No significant pericolonic fat stranding. Appendix is not d efinitely visualized. No free intra-abdominal air or free fluid. No pathologically enlarged abdominal or pelvic lymph nodes. Aortobiiliac atherosclerotic disease. No aneurysm. Bladder is decompressed precluding complete evaluation. Uterus is absent. No appreciable free pelvic fluid. Intra-abdominal wall is without acute process. Bones: No acute or suspicious osseous abnormalities. IMPRESSION: Long segment of mild wall thickening involving the distal transverse colon as well as the majority of the descending colon may be from underdistention or mild colitis from a infectious or inflammatory etiology, ischemia is also included in differential. Moderate colonic diverticulosis without evidence of diverticulitis. No free pelvic fluid. Electronically signed by: Leoncio Reyes DO (05/11/2021 4:33 PM) [facility] [] Course & Med Decision Making: Course & Med Decision Making Pertinent Labs and Imaging studies reviewed. (See chart for details) [address] Ronquillo regarding this patient's abdominal pain and findings on the CT scan he is agreeable to admitting the patient for observation, and consulting surgery for further evaluation of her abdominal pain. Patient was informed of the plan of care and she is agreeable. [address] Hart and informed him of the consultation for this patient for abdominal pain. Dragon Disclaimer: Bill Disclaimer: This electronic medical record was generated, in whole or in part, using a voice recognition dictation system. Departure Departure Impression: Primary Impression: Abdominal pain Qualified Codes: R10.30 - Lower abdominal pain, unspecified Additional Impression: Colitis Disposition: ADMITTED INPATIENT Admitting Physician: JAYCE Condition: STABLE Referrals: ALONZO FLOYD MD (PCP) JUAN RAMON LEON APRN May 11, 2021 15:35
[2021-05-11] MEDS ORDERED: CONTRAST GIVEN. MC PRN (15:45)
[2021-05-11] MEDS ORDERED: IOHEXOL 300 MG/ML 100ML VIAL. IV ONE (15:45)
[2021-05-11 15:53] LABS: ALBUMIN/GLOBULIN RATIO 1.2 (1.0-1.7); CALCIUM 9.3 mg/dL (8.5-10.1); CREATININE 0.8 mg/dL (0.6-1.0); GFR 85.3; POTASSIUM 4.9 mmol/L (3.5-5.1); TOTAL BILIRUBIN 0.8 mg/dL (0.2-1.0); TOTAL PROTEIN 7.3 g/dL (6.4-8.2)
[2021-05-11 15:58] LABS: BACTERIA,URINE FEW /HPF (0-FEW)
--- NOTE | 2021-05-11 16:36 | RAD ---
EXAM: CT Abdomen and Pelvis with IV contrast CLINICAL HISTORY: Reason: abdominal pain hx of diverticulosis / Spl. Instructions: OMNI 300 INJ. 75 M LS / History: . COMPARISON: 09/16/2020 TECHNIQUE: Helical CT of the abdomen and pelvis was performed following the administration of intrave nous contrast. Axial, coronal and sagittal reformatted images were generated. PQRS compliance statement - One or more of the following individualized dose reduction techniques wer e utilized for this study: 1. Automated exposure control 2. Adjustment of the mA and/or kV according to patient size 3. Use of iterative reconstruction technique FINDINGS: Lower Chest: Visualized lung bases are clear. Heart size is normal. Abdomen and Pelvis: Diffuse hepatic steatosis with increased focal fat adjacent to the falciform ligament. No suspicious hepatic lesions. Gallbladder is dilated without wall thickening or pericholecystic inflammation. No s ignificant biliary ductal dilation. The spleen, adrenals, and pancreas are unremarkable. Symmetric renal nephrograms. Bilateral subcentimeter hypoattenuating foci are too small to characteri ze favoring simple cysts. No obstructing nephrolithiasis or hydroureteronephrosis. Stomach is decompressed accentuating the wall thickness. No evidence of bowel obstruction. There is m ild wall thickening involving the distal transverse colon and the majority of the descending colon th is may be due to to underdistention or mild colitis. Moderate colonic diverticulosis without evidence of diverticulitis. No significant pericolonic fat stranding. Appendix is not definitely visualized. No free intra-abdominal air or free fluid. No pathologically enlarged abdominal or pelvic lymph nodes . Aortobiiliac atherosclerotic disease. No aneurysm. Bladder is decompressed precluding complete evaluation. Uterus is absent. No appreciable free pelvic fluid. Intra-abdominal wall is without acute process. Bones: No acute or suspicious osseous abnormalities. IMPRESSION: Long segment of mild wall thickening involving the distal transverse colon as well as the majority of the descending colon may be from underdistention or mild colitis from a infectious or inflammatory e tiology, ischemia is also included in differential. Moderate colonic diverticulosis without evidence of diverticulitis. No free pelvic fluid. Electronically signed by: Leoncio Reyes DO (05/11/2021 4:33 PM) [facility]
[2021-05-11] MEDS ORDERED: ONDANSETRON PF 4 MG/2 ML VIAL. IVP PRN (17:15)
[2021-05-11] MEDS ORDERED: fentaNYL PF VIAL 100 MCG/2 ML VIAL IVP PRN (17:15)
--- NOTE | 2021-05-11 19:28 | PDOC2 ---
CONSULT Date of Consult Date of Consult DATE: 05/11/21 TIME: 19:25 Reason for Consult Reason for Consult: abd pain Referring Physician Referring Physician: Dr. Ronquillo Identification/Chief Complaint Chief Complaint abd pain Source Source: Chart review, Patient History of Present Illness Reason for Visit: 71 yo F with c/o abd pain, reports similar to previous diverticulitis attacks. Noted to have weight loss per primary. Seen in [place] and appears comfortable. Past Medical History Cardiovascular: HTN, Hyperlipidemia, Other Pulmonary: COPD, Pneumonia CENTRAL NERVOUS SYSTEM: CVA, Periperal neuropathy GI: GERD Heme/Onc: No pertinent hx Hepatobiliary: Cirrhosis Psych: Anxiety Musculoskeletal: low back pain, Osteoarthritis Rheumatologic: Fibromyalgia Infectious disease: No pertinent hx Renal/: No pertinent hx Endocrine: Diabetes, Hypothyroidism Past Surgical History Past Surgical History: Hysterectomy, Other Family History Family History: Cancer, Chronic Bronchitis, Hypertension, Other Social History 1 pack per day ALCOHOL: occassional Drugs: None Lives: with Family Current Problem List Problem List Problems Medical Problems: (1) Abdominal pain Status: Acute (2) Colitis Status: Acute Current Medications Current Medications Current Medications Sodium Chloride 1,000 ml @ 999 mls/hr 1X ONCE IV Last administered on 05/11/21at 15:51; Start 05/11/21 at 15:30; Stop 05/11/21 at 16:30; Status DC Iohexol (Omnipaque 300 Mg/ml) 75 ml 1X ONCE IV Last administered on 05/11/21at 16:05; Start 05/11/21 at 15:45; Stop 05/11/21 at 15:47; Status DC Info (CONTRAST GIVEN -- Rx MONITORING) 1 each PRN DAILY PRN MC SEE COMMENTS; Start 05/11/21 at 15:45; Stop 05/13/21 at 15:44 Levofloxacin/ Dextrose 100 ml @ 100 mls/hr 1X ONCE IV Last administered on 05/11/21at 17:43; Start 05/11/21 at 17:00; Stop 05/11/21 at 17:59; Status DC Ondansetron HCl (Zofran) 4 mg PRN Q8HRS PRN IVP NAUSEA/VOMITING; Start 05/11/21 at 17:15; Stop 05/12/21 at 17:14 Fentanyl Citrate (Fentanyl 2ml Vial) 50 mcg PRN Q2HRS PRN IVP PAIN Last administered on 05/11/21at 17:43; Start 05/11/21 at 17:15; Stop 05/12/21 at 17:14 Active Scripts Active Augmentin 500-125 Tablet (Amoxicillin/Potassium Clav) 1 Each Tablet 1 Tab PO BID 4 Days Claritin (Loratadine) 10 Mg Tablet 1 Tab PO DAILY Tramadol Hcl 50 Mg Tablet 50 Mg PO Q6HRS PRN Meloxicam 7.5 Mg Tablet 7.5 Mg PO DAILY Hyzaar 100-25 Tablet (Losartan/Hydrochlorothiazide) 1 Each Tablet 1 Tab PO DAILY Reported Zofran (Ondansetron Hcl) 8 Mg Tablet 8 Mg PO BID PRN [employer] 5-325 Tablet (Acetaminophen/Hydrocodone Bitart) 1 Each Tablet 1-2 Tab PO Q6 HRS LAST DOSE GIVEN: Colace (Docusate Sodium) 100 Mg Capsule 100 Mg PO BID Robaxin (Methocarbamol) 500 Mg Tablet 1 Tab PO BID Miralax (Polyethylene Glycol 3350) 17 Gm Powd.pack 1 Packet PO DAILY Calcium 500-Vit D3 600 Tablet (Calcium Carbonate/Vitamin D3) 1 Each Tablet 2 Tab PO DAILY [Vitamin B12] 1,000 Mcg IM QMONTH Proair Respiclick (Albuterol Sulfate) 90 Mcg Aer.pow.ba 1 Puff IH PRN Q6HRS PRN Amlodipine Besylate 10 Mg Tablet 10 Mg PO DAILY Atorvastatin Calcium 40 Mg Tablet 1 Tab PO QHS Cyclobenzaprine Hcl 10 Mg Tablet 10 Mg PO HS Nabumetone 500 Mg Tablet 1,000 Mg PO DAILY Lyrica (Pregabalin) 150 Mg Capsule 150 Mg PO BID 30 Days Fosamax (Alendronate Sodium) 70 Mg Tablet 70 Mg PO WEEKLY Duloxetine Hcl 60 Mg Capsule. 60 Mg PO DAILY Metformin Hcl 500 Mg Tablet 500 Mg PO BIDWMEALS Vitamin D3 (Cholecalciferol (Vitamin D3)) 5,000 Unit Tablet 50,000 Unit PO WEEKLY Spiriva (Tiotropium [place]) 18 Mcg Cap.w.dev 2 Inh IH DAILY Aspir 81 (Aspirin) 81 Mg Tablet.dr 81 Mg PO DAILY Ranitidine Hcl 150 Mg Tablet 150 Mg PO BID Allergies Allergies: Coded Allergies: Penicillins (Verified Allergy, Intermediate, 05/11/21) adhesive tape (Verified Allergy, Intermediate, BURNING FEELING IN THE SKIN, 05/11/21) ROS Gastrointestinal: Yes Abdominal Pain, Yes Constipation Physical Exam General: Alert, Oriented X3, Cooperative, No acute distress, Other (thin) HEENT: Atraumatic Lungs: Normal air movement Abdomen: Soft, No tenderness, Other (well healed incision) Extremities: No clubbing, No cyanosis Skin: No rashes, No breakdown Neuro: Normal speech, Sensation intact Psych/Mental Status: Mental status NL, Mood NL Vitals VITALS Vital Signs Date Time Temp Pulse Resp B/P (MAP) Pulse Ox O2 Delivery O2 Flow Rate FiO2 05/11/21 18:10 68 16 162/88 (112) 98 Room Air 05/11/21 14:47 98.5 98.5 Labs Labs Laboratory Tests Test 05/11/21 14:45 05/11/21 15:05 Urine Collection Type Unknown Urine Color (Auto) Yellow Urine Turbidity Clear Urine pH (Auto) 5.5 (<5.0-8.0) Urine Specific [place] 1.025 (1.000-1.030) Urine Protein (Auto) 50 mg/dL (Negative) Urine Glucose (Auto)(UA) Negative mg/dL (Negative) Urine Ketones (Auto) 20 mg/dL (Negative) Urine Blood (Auto) Trace (Negative) Urine Nitrite Negative (Negative) Urine Bilirubin (Auto) Negative (Negative) Urine Urobilinogen (Auto) 2 mg/dL (Normal) Urine Leukocyte Esterase (Auto) Negative (Negative) Urine RBC 1-2 /HPF (0-2) Urine WBC 1-4 /HPF (0-4) Urine Squamous Epithelial Cells Mod /LPF Urine Bacteria Few /HPF (0-FEW) Urine Mucus Mod /LPF White Blood Count 5.3 x10^3/uL (4.0-11.0) Red Blood Count 3.65 x10^6/uL (3.50-5.40) Hemoglobin 13.6 g/dL (12.0-15.5) Hematocrit 39.7 % (36.0-47.0) Mean Corpuscular Volume 109 fL (79-100) Mean Corpuscular Hemoglobin 37 pg (25-35) Mean Corpuscular Hemoglobin Concent 34 g/dL (31-37) Red Cell Distribution Width 17.4 % (11.5-14.5) Platelet Count 281 x10^3/uL (140-400) Neutrophils (%) (Auto) 81 % (31-73) Lymphocytes (%) (Auto) 15 % (24-48) Monocytes (%) (Auto) 4 % (0-9) Eosinophils (%) (Auto) 0 % (0-3) Basophils (%) (Auto) 1 % (0-3) Neutrophils # (Auto) 4.3 x10^3/uL (1.8-7.7) Lymphocytes # (Auto) 0.8 x10^3/uL (1.0-4.8) Monocytes # (Auto) 0.2 x10^3/uL (0.0-1.1) Eosinophils # (Auto) 0.0 x10^3/uL (0.0-0.7) Basophils # (Auto) 0.0 x10^3/uL (0.0-0.2) Sodium Level 143 mmol/L (136-145) Potassium Level 4.9 mmol/L (3.5-5.1) Chloride Level 103 mmol/L (98-107) Carbon Dioxide Level 28 mmol/L (21-32) Anion Gap 12 (6-14) Blood Urea Nitrogen 17 mg/dL (7-20) Creatinine 0.8 mg/dL (0.6-1.0) Estimated GFR (Cockcroft-Gault) 85.3 BUN/Creatinine Ratio 21 (6-20) Glucose Level 74 mg/dL (70-99) Lactic Acid Level 1.6 mmol/L (0.4-2.0) Calcium Level 9.3 mg/dL (8.5-10.1) Total Bilirubin 0.8 mg/dL (0.2-1.0) Aspartate Amino Transf (AST/SGOT) 32 U/L (15-37) Alanine Aminotransferase (ALT/SGPT) 15 U/L (14-59) Alkaline Phosphatase 70 U/L (46-116) Total Protein 7.3 g/dL (6.4-8.2) Albumin 4.0 g/dL (3.4-5.0) Albumin/Globulin Ratio 1.2 (1.0-1.7) Lipase 37 U/L (73-393) Laboratory Tests Test 05/11/21 14:45 05/11/21 15:05 Urine Collection Type Unknown Urine Color (Auto) Yellow Urine Turbidity Clear Urine pH (Auto) 5.5 (<5.0-8.0) Urine Specific [place] 1.025 (1.000-1.030) Urine Protein (Auto) 50 mg/dL (Negative) Urine Glucose (Auto)(UA) Negative mg/dL (Negative) Urine Ketones (Auto) 20 mg/dL (Negative) Urine Blood (Auto) Trace (Negative) Urine Nitrite Negative (Negative) Urine Bilirubin (Auto) Negative (Negative) Urine Urobilinogen (Auto) 2 mg/dL (Normal) Urine Leukocyte Esterase (Auto) Negative (Negative) Urine RBC 1-2 /HPF (0-2) Urine WBC 1-4 /HPF (0-4) Urine Squamous Epithelial Cells Mod /LPF Urine Bacteria Few /HPF (0-FEW) Urine Mucus Mod /LPF White Blood Count 5.3 x10^3/uL (4.0-11.0) Red Blood Count 3.65 x10^6/uL (3.50-5.40) Hemoglobin 13.6 g/dL (12.0-15.5) Hematocrit 39.7 % (36.0-47.0) Mean Corpuscular Volume 109 fL (79-100) Mean Corpuscular Hemoglobin 37 pg (25-35) Mean Corpuscular Hemoglobin Concent 34 g/dL (31-37) Red Cell Distribution Width 17.4 % (11.5-14.5) Platelet Count 281 x10^3/uL (140-400) Neutrophils (%) (Auto) 81 % (31-73) Lymphocytes (%) (Auto) 15 % (24-48) Monocytes (%) (Auto) 4 % (0-9) Eosinophils (%) (Auto) 0 % (0-3) Basophils (%) (Auto) 1 % (0-3) Neutrophils # (Auto) 4.3 x10^3/uL (1.8-7.7) Lymphocytes # (Auto) 0.8 x10^3/uL (1.0-4.8) Monocytes # (Auto) 0.2 x10^3/uL (0.0-1.1) Eosinophils # (Auto) 0.0 x10^3/uL (0.0-0.7) Basophils # (Auto) 0.0 x10^3/uL (0.0-0.2) Sodium Level 143 mmol/L (136-145) Potassium Level 4.9 mmol/L (3.5-5.1) Chloride Level 103 mmol/L (98-107) Carbon Dioxide Level 28 mmol/L (21-32) Anion Gap 12 (6-14) Blood Urea Nitrogen 17 mg/dL (7-20) Creatinine 0.8 mg/dL (0.6-1.0) Estimated GFR (Cockcroft-Gault) 85.3 BUN/Creatinine Ratio 21 (6-20) Glucose Level 74 mg/dL (70-99) Lactic Acid Level 1.6 mmol/L (0.4-2.0) Calcium Level 9.3 mg/dL (8.5-10.1) Total Bilirubin 0.8 mg/dL (0.2-1.0) Aspartate Amino Transf (AST/SGOT) 32 U/L (15-37) Alanine Aminotransferase (ALT/SGPT) 15 U/L (14-59) Alkaline Phosphatase 70 U/L (46-116) Total Protein 7.3 g/dL (6.4-8.2) Albumin 4.0 g/dL (3.4-5.0) Albumin/Globulin Ratio 1.2 (1.0-1.7) Lipase 37 U/L (73-393) Images Images Ct with colon thickening Assessment/Plan Assessment/Plan abd pain, favor colitis agree with admission and observation would favor GI consult Thanks for consult! SAMANTA AHUMADA MD May 11, 2021 19:28
[2021-05-11 20:25] VITALS: BP 125/81
--- NOTE | 2021-05-11 21:59 | PDOC1 ---
History and Physical Date of Service: DOS: DATE: 05/11/21 TIME: 21:59 Chief Complaint: Chief Complain: abdominal pain History of Present Illness: HPI: Patient is a 71-year-old female that presents today with abdominal pain. Patient states the abdominal pain started yesterday, she states she has a past medical history of diverticulitis and feels this is a flareup of this. Patient states she has had increased nausea but no vomiting, she states that her last bowel movement was of last week, she states that it was normal for her, she said she has had this sensation of having to go the bathroom but is unable to do so. Patient denies chest pain, shortness of air, fever, chills, or diarrhea stools or blood in her stool. Past Medical/Surgical History: PMH/PSH: Past Medical History: Anxiety, Asthma, Bronchitis, CHF, COPD, CVA, Depression, Diabetes-Type II, Diverticulitis, Fibromyalgia, Hypertension, Hypothyroid, Pneumonia Additional Past Medical Histor: OSTEOPOROSIS, Past Surgical History: Hysterectomy, Tonsillectomy Additional Past Surgical Histo: partial thyroidectomy,varicose veins,cataracts,BLADDER REPAIR, CTR Smoking Status: Current Every Day Smoker Alcohol Use: Occasionally Drug Use: None Allergies: Allergies: Coded Allergies: Penicillins (Verified Allergy, Intermediate, 05/11/21) adhesive tape (Verified Allergy, Intermediate, BURNING FEELING IN THE SKIN, 05/11/21) Family History: Family History: DM Current Medications: Current Medications Current Medications Sodium Chloride 1,000 ml @ 999 mls/hr 1X ONCE IV Last administered on 05/11/21at 15:51; Start 05/11/21 at 15:30; Stop 05/11/21 at 16:30; Status DC Iohexol (Omnipaque 300 Mg/ml) 75 ml 1X ONCE IV Last administered on 05/11/21at 16:05; Start 05/11/21 at 15:45; Stop 05/11/21 at 15:47; Status DC Info (CONTRAST GIVEN -- Rx MONITORING) 1 each PRN DAILY PRN MC SEE COMMENTS; Start 05/11/21 at 15:45; Stop 05/13/21 at 15:44 Levofloxacin/ Dextrose 100 ml @ 100 mls/hr 1X ONCE IV Last administered on 05/11/21at 17:43; Start 05/11/21 at 17:00; Stop 05/11/21 at 17:59; Status DC Ondansetron HCl (Zofran) 4 mg PRN Q8HRS PRN IVP NAUSEA/VOMITING; Start 05/11/21 at 17:15; Stop 05/12/21 at 17:14 Fentanyl Citrate (Fentanyl 2ml Vial) 50 mcg PRN Q2HRS PRN IVP PAIN Last administered on 05/11/21at 17:43; Start 05/11/21 at 17:15; Stop 05/12/21 at 17:14 Active Scripts Active Augmentin 500-125 Tablet (Amoxicillin/Potassium Clav) 1 Each Tablet 1 Tab PO BID 4 Days Claritin (Loratadine) 10 Mg Tablet 1 Tab PO DAILY Tramadol Hcl 50 Mg Tablet 50 Mg PO Q6HRS PRN Meloxicam 7.5 Mg Tablet 7.5 Mg PO DAILY Hyzaar 100-25 Tablet (Losartan/Hydrochlorothiazide) 1 Each Tablet 1 Tab PO DAILY Reported Zofran (Ondansetron Hcl) 8 Mg Tablet 8 Mg PO BID PRN [place] 5-325 Tablet (Acetaminophen/Hydrocodone Bitart) 1 Each Tablet 1-2 Tab PO Q6 HRS LAST DOSE GIVEN: Colace (Docusate Sodium) 100 Mg Capsule 100 Mg PO BID Robaxin (Methocarbamol) 500 Mg Tablet 1 Tab PO BID Miralax (Polyethylene Glycol 3350) 17 Gm Powd.pack 1 Packet PO DAILY Calcium 500-Vit D3 600 Tablet (Calcium Carbonate/Vitamin D3) 1 Each Tablet 2 Tab PO DAILY [Vitamin B12] 1,000 Mcg IM QMONTH Proair Respiclick (Albuterol Sulfate) 90 Mcg Aer.pow.ba 1 Puff IH PRN Q6HRS PRN Amlodipine Besylate 10 Mg Tablet 10 Mg PO DAILY Atorvastatin Calcium 40 Mg Tablet 1 Tab PO QHS Cyclobenzaprine Hcl 10 Mg Tablet 10 Mg PO HS Nabumetone 500 Mg Tablet 1,000 Mg PO DAILY Lyrica (Pregabalin) 150 Mg Capsule 150 Mg PO BID 30 Days Fosamax (Alendronate Sodium) 70 Mg Tablet 70 Mg PO WEEKLY Duloxetine Hcl 60 Mg Capsule.dr 60 Mg PO DAILY Metformin Hcl 500 Mg Tablet 500 Mg PO BIDWMEALS Vitamin D3 (Cholecalciferol (Vitamin D3)) 5,000 Unit Tablet 50,000 Unit PO WEEKLY Spiriva (Tiotropium Eunice) 18 Mcg Cap.w.dev 2 Inh IH DAILY Aspir 81 (Aspirin) 81 Mg Tablet.dr 81 Mg PO DAILY Ranitidine Hcl 150 Mg Tablet 150 Mg PO BID ROS: Review of Systems Review of System As noted in HPI 14 point review systems was negative Physical Exam: Vital Signs: Vital Signs Date Time Temp Pulse Resp B/P (MAP) Pulse Ox O2 Delivery O2 Flow Rate FiO2 05/11/21 20:25 98.0 79 18 125/81 (96) 96 Room Air 98.0 Physcial Exam: GEN: No apparent distress. Alert and oriented HEENT: Normal cephalic, atraumatic, external auditory canals are patent EYES: Extraocular muscles are intact, pupil are equally round and reactive to light and accommodation MUSCULOSKELETAL: Well developed , well nourished, good range of motion ENDOCRINE: No thyromegaly was palpated LYMPHATICS: No cervical chain or axillary nodes were noted HEMATOPOIETIC: No bruising NECK: Supple, no JVD, no thyromegaly was noted LUNGS: Clear to auscultation in all lung mc without rhonchi or wheezing HEART: RRR, S!, S2 present. Peripheral pulses intact, no obvious murmurs noted ABDOMEN: Soft, nontender. Positive bowel sounds, no organomegaly, normal bowel sounds EXTREMITIES: Without clubbing, cyanosis, or edema. Pedal pulses intact. Negative Homans sign NEUROLOGIC: Normal speech and tone. A&O x 3, moves all extremities, no obvious focal deficits PSYCHIATRIC: Normal affect, normal mood. Stable SKIN: No ulcerations or rashes, good skin turgor, no jaundice VASCULAR: Good capillary refill, neurovascular bundle appears to be intact Labs: Labs: Laboratory Tests Test 05/11/21 14:45 05/11/21 15:05 05/11/21 21:36 Urine Collection Type Unknown Urine Color (Auto) Yellow Urine Turbidity Clear Urine pH (Auto) 5.5 (<5.0-8.0) Urine Specific [place] 1.025 (1.000-1.030) Urine Protein (Auto) 50 mg/dL (Negative) Urine Glucose (Auto)(UA) Negative mg/dL (Negative) Urine Ketones (Auto) 20 mg/dL (Negative) Urine Blood (Auto) Trace (Negative) Urine Nitrite Negative (Negative) Urine Bilirubin (Auto) Negative (Negative) Urine Urobilinogen (Auto) 2 mg/dL (Normal) Urine Leukocyte Esterase (Auto) Negative (Negative) Urine RBC 1-2 /HPF (0-2) Urine WBC 1-4 /HPF (0-4) Urine Squamous Epithelial Cells Mod /LPF Urine Bacteria Few /HPF (0-FEW) Urine Mucus Mod /LPF White Blood Count 5.3 x10^3/uL (4.0-11.0) Red Blood Count 3.65 x10^6/uL (3.50-5.40) Hemoglobin 13.6 g/dL (12.0-15.5) Hematocrit 39.7 % (36.0-47.0) Mean Corpuscular Volume 109 fL (79-100) Mean Corpuscular Hemoglobin 37 pg (25-35) Mean Corpuscular Hemoglobin Concent 34 g/dL (31-37) Red Cell Distribution Width 17.4 % (11.5-14.5) Platelet Count 281 x10^3/uL (140-400) Neutrophils (%) (Auto) 81 % (31-73) Lymphocytes (%) (Auto) 15 % (24-48) Monocytes (%) (Auto) 4 % (0-9) Eosinophils (%) (Auto) 0 % (0-3) Basophils (%) (Auto) 1 % (0-3) Neutrophils # (Auto) 4.3 x10^3/uL (1.8-7.7) Lymphocytes # (Auto) 0.8 x10^3/uL (1.0-4.8) Monocytes # (Auto) 0.2 x10^3/uL (0.0-1.1) Eosinophils # (Auto) 0.0 x10^3/uL (0.0-0.7) Basophils # (Auto) 0.0 x10^3/uL (0.0-0.2) Sodium Level 143 mmol/L (136-145) Potassium Level 4.9 mmol/L (3.5-5.1) Chloride Level 103 mmol/L (98-107) Carbon Dioxide Level 28 mmol/L (21-32) Anion Gap 12 (6-14) Blood Urea Nitrogen 17 mg/dL (7-20) Creatinine 0.8 mg/dL (0.6-1.0) Estimated GFR (Cockcroft-Gault) 85.3 BUN/Creatinine Ratio 21 (6-20) Glucose Level 74 mg/dL (70-99) Lactic Acid Level 1.6 mmol/L (0.4-2.0) Calcium Level 9.3 mg/dL (8.5-10.1) Total Bilirubin 0.8 mg/dL (0.2-1.0) Aspartate Amino Transf (AST/SGOT) 32 U/L (15-37) Alanine Aminotransferase (ALT/SGPT) 15 U/L (14-59) Alkaline Phosphatase 70 U/L (46-116) Total Protein 7.3 g/dL (6.4-8.2) Albumin 4.0 g/dL (3.4-5.0) Albumin/Globulin Ratio 1.2 (1.0-1.7) Lipase 37 U/L (73-393) Glucose (Fingerstick) 72 mg/dL (70-99) Laboratory Tests Test 05/11/21 14:45 05/11/21 15:05 05/11/21 21:36 Urine Collection Type Unknown Urine Color (Auto) Yellow Urine Turbidity Clear Urine pH (Auto) 5.5 (<5.0-8.0) Urine Specific [place] 1.025 (1.000-1.030) Urine Protein (Auto) 50 mg/dL (Negative) Urine Glucose (Auto)(UA) Negative mg/dL (Negative) Urine Ketones (Auto) 20 mg/dL (Negative) Urine Blood (Auto) Trace (Negative) Urine Nitrite Negative (Negative) Urine Bilirubin (Auto) Negative (Negative) Urine Urobilinogen (Auto) 2 mg/dL (Normal) Urine Leukocyte Esterase (Auto) Negative (Negative) Urine RBC 1-2 /HPF (0-2) Urine WBC 1-4 /HPF (0-4) Urine Squamous Epithelial Cells Mod /LPF Urine Bacteria Few /HPF (0-FEW) Urine Mucus Mod /LPF White Blood Count 5.3 x10^3/uL (4.0-11.0) Red Blood Count 3.65 x10^6/uL (3.50-5.40) Hemoglobin 13.6 g/dL (12.0-15.5) Hematocrit 39.7 % (36.0-47.0) Mean Corpuscular Volume 109 fL (79-100) Mean Corpuscular Hemoglobin 37 pg (25-35) Mean Corpuscular Hemoglobin Concent 34 g/dL (31-37) Red Cell Distribution Width 17.4 % (11.5-14.5) Platelet Count 281 x10^3/uL (140-400) Neutrophils (%) (Auto) 81 % (31-73) Lymphocytes (%) (Auto) 15 % (24-48) Monocytes (%) (Auto) 4 % (0-9) Eosinophils (%) (Auto) 0 % (0-3) Basophils (%) (Auto) 1 % (0-3) Neutrophils # (Auto) 4.3 x10^3/uL (1.8-7.7) Lymphocytes # (Auto) 0.8 x10^3/uL (1.0-4.8) Monocytes # (Auto) 0.2 x10^3/uL (0.0-1.1) Eosinophils # (Auto) 0.0 x10^3/uL (0.0-0.7) Basophils # (Auto) 0.0 x10^3/uL (0.0-0.2) Sodium Level 143 mmol/L (136-145) Potassium Level 4.9 mmol/L (3.5-5.1) Chloride Level 103 mmol/L (98-107) Carbon Dioxide Level 28 mmol/L (21-32) Anion Gap 12 (6-14) Blood Urea Nitrogen 17 mg/dL (7-20) Creatinine 0.8 mg/dL (0.6-1.0) Estimated GFR (Cockcroft-Gault) 85.3 BUN/Creatinine Ratio 21 (6-20) Glucose Level 74 mg/dL (70-99) Lactic Acid Level 1.6 mmol/L (0.4-2.0) Calcium Level 9.3 mg/dL (8.5-10.1) Total Bilirubin 0.8 mg/dL (0.2-1.0) Aspartate Amino Transf (AST/SGOT) 32 U/L (15-37) Alanine Aminotransferase (ALT/SGPT) 15 U/L (14-59) Alkaline Phosphatase 70 U/L (46-116) Total Protein 7.3 g/dL (6.4-8.2) Albumin 4.0 g/dL (3.4-5.0) Albumin/Globulin Ratio 1.2 (1.0-1.7) Lipase 37 U/L (73-393) Glucose (Fingerstick) 72 mg/dL (70-99) Assessment/Plan Assessment/Plan Abdominal pain diarrhea concern for recurrent diverticulitis flare. History anxiety asthma bronchitis CHF COPD type 2 diabetes hypertension hypothyroid -1 day history abdominal pain history of diverticulitis and she says she thinks it feels like this -Imaging overall inconclusive. Started on Levaquin in emergency room given her allergies I transition this to Flagyl. -As needed treatment for pain -Advance diet as tolerated -DVT prophylaxis -Home meds as indicated Justifications for Admission Other Justification Acute abdominal pain due to acute diverticulitis DARIN SPENCE MD May 11, 2021 21:59
[2021-05-11] MEDS ORDERED: traMADol 50 MG TABLET PO PRN (22:00)
[2021-05-11 23:30] VITALS: BP 127/88
[2021-05-12] VITALS (7 sets, daily range): BP systolic 104–181; BP diastolic 78–89
[2021-05-12] MEDS ORDERED: PIP/TAZO PER PHARMACY MC PRN (08:00)
[2021-05-12] MEDS ORDERED: levOFLOXacin PER PHARMACY. MC PRN (08:00)
[2021-05-12] MEDS: PREGABALIN 75 MG CAPSULE PO SCH ×2 (08:40→20:37)
[2021-05-12] MEDS: hydroCHLOROthiazide 25 MG TABLET PO SCH (08:41)
[2021-05-12] MEDS: ASPIRIN ENTERIC COATED 81 MG TABLET.DR. PO SCH (08:41)
[2021-05-12] MEDS: CETIRIZINE HCL 10 MG TABLET. PO SCH (08:42)
[2021-05-12] MEDS: LOSARTAN POTASSIUM 50 MG TABLET. PO SCH (08:44)
[2021-05-12] MEDS: METHOCARBAMOL 500 MG TABLET PO SCH ×2 (08:47→20:37)
[2021-05-12] MEDS: DOCUSATE SODIUM 100 MG CAPSULE. PO SCH ×2 (08:47→20:37)
[2021-05-12] MEDS ORDERED: MELOXICAM 7.5 MG TABLET PO SCH (09:00)
--- NOTE | 2021-05-12 09:00 | NUR ---
I concur with Evans mays for this am.
--- NOTE | 2021-05-12 09:03 | PDOC ---
BLANCHE ESPINO FOOD SALES CLERK 05/12/21 0903: SURGICAL PROGRESS NOTE DATE: 05/12/21 TIME: 09:02 Subjective some increased pain with clears no emesis no bowel function Vital Signs Vital Signs Date Time Temp Pulse Resp B/P (MAP) Pulse Ox O2 Delivery O2 Flow Rate FiO2 05/12/21 08:53 97.8 60 18 144/78 (100) 95 Room Air 97.8 I&O Intake and Output 05/12/21 07:00 Intake Total 1580 ml Balance 1580 ml Intake Oral 480 ml IV Total 1100 ml # Voids 2 General: Alert, Oriented X3, Cooperative Abdomen: Soft, Other (mildly ttp lower abdomen ) Labs Laboratory Tests Test 05/11/21 14:45 05/11/21 15:05 05/11/21 21:36 05/12/21 07:26 Urine Collection Type Unknown Urine Color (Auto) Yellow Urine Turbidity Clear Urine pH (Auto) 5.5 (<5.0-8.0) Urine Specific [place] 1.025 (1.000-1.030) Urine Protein (Auto) 50 mg/dL (Negative) Urine Glucose (Auto)(UA) Negative mg/dL (Negative) Urine Ketones (Auto) 20 mg/dL (Negative) Urine Blood (Auto) Trace (Negative) Urine Nitrite Negative (Negative) Urine Bilirubin (Auto) Negative (Negative) Urine Urobilinogen (Auto) 2 mg/dL (Normal) Urine Leukocyte Esterase (Auto) Negative (Negative) Urine RBC 1-2 /HPF (0-2) Urine WBC 1-4 /HPF (0-4) Urine Squamous Epithelial Cells Mod /LPF Urine Bacteria Few /HPF (0-FEW) Urine Mucus Mod /LPF White Blood Count 5.3 x10^3/uL (4.0-11.0) Red Blood Count 3.65 x10^6/uL (3.50-5.40) Hemoglobin 13.6 g/dL (12.0-15.5) Hematocrit 39.7 % (36.0-47.0) Mean Corpuscular Volume 109 fL (79-100) Mean Corpuscular Hemoglobin 37 pg (25-35) Mean Corpuscular Hemoglobin Concent 34 g/dL (31-37) Red Cell Distribution Width 17.4 % (11.5-14.5) Platelet Count 281 x10^3/uL (140-400) Neutrophils (%) (Auto) 81 % (31-73) Lymphocytes (%) (Auto) 15 % (24-48) Monocytes (%) (Auto) 4 % (0-9) Eosinophils (%) (Auto) 0 % (0-3) Basophils (%) (Auto) 1 % (0-3) Neutrophils # (Auto) 4.3 x10^3/uL (1.8-7.7) Lymphocytes # (Auto) 0.8 x10^3/uL (1.0-4.8) Monocytes # (Auto) 0.2 x10^3/uL (0.0-1.1) Eosinophils # (Auto) 0.0 x10^3/uL (0.0-0.7) Basophils # (Auto) 0.0 x10^3/uL (0.0-0.2) Sodium Level 143 mmol/L (136-145) Potassium Level 4.9 mmol/L (3.5-5.1) Chloride Level 103 mmol/L (98-107) Carbon Dioxide Level 28 mmol/L (21-32) Anion Gap 12 (6-14) Blood Urea Nitrogen 17 mg/dL (7-20) Creatinine 0.8 mg/dL (0.6-1.0) Estimated GFR (Cockcroft-Gault) 85.3 BUN/Creatinine Ratio 21 (6-20) Glucose Level 74 mg/dL (70-99) Lactic Acid Level 1.6 mmol/L (0.4-2.0) Calcium Level 9.3 mg/dL (8.5-10.1) Total Bilirubin 0.8 mg/dL (0.2-1.0) Aspartate Amino Transf (AST/SGOT) 32 U/L (15-37) Alanine Aminotransferase (ALT/SGPT) 15 U/L (14-59) Alkaline Phosphatase 70 U/L (46-116) Total Protein 7.3 g/dL (6.4-8.2) Albumin 4.0 g/dL (3.4-5.0) Albumin/Globulin Ratio 1.2 (1.0-1.7) Lipase 37 U/L (73-393) Glucose (Fingerstick) 72 mg/dL (70-99) 65 mg/dL (70-99) Laboratory Tests Test 05/11/21 14:45 05/11/21 15:05 05/11/21 21:36 05/12/21 07:26 Urine Collection Type Unknown Urine Color (Auto) Yellow Urine Turbidity Clear Urine pH (Auto) 5.5 (<5.0-8.0) Urine Specific [place] 1.025 (1.000-1.030) Urine Protein (Auto) 50 mg/dL (Negative) Urine Glucose (Auto)(UA) Negative mg/dL (Negative) Urine Ketones (Auto) 20 mg/dL (Negative) Urine Blood (Auto) Trace (Negative) Urine Nitrite Negative (Negative) Urine Bilirubin (Auto) Negative (Negative) Urine Urobilinogen (Auto) 2 mg/dL (Normal) Urine Leukocyte Esterase (Auto) Negative (Negative) Urine RBC 1-2 /HPF (0-2) Urine WBC 1-4 /HPF (0-4) Urine Squamous Epithelial Cells Mod /LPF Urine Bacteria Few /HPF (0-FEW) Urine Mucus Mod /LPF White Blood Count 5.3 x10^3/uL (4.0-11.0) Red Blood Count 3.65 x10^6/uL (3.50-5.40) Hemoglobin 13.6 g/dL (12.0-15.5) Hematocrit 39.7 % (36.0-47.0) Mean Corpuscular Volume 109 fL (79-100) Mean Corpuscular Hemoglobin 37 pg (25-35) Mean Corpuscular Hemoglobin Concent 34 g/dL (31-37) Red Cell Distribution Width 17.4 % (11.5-14.5) Platelet Count 281 x10^3/uL (140-400) Neutrophils (%) (Auto) 81 % (31-73) Lymphocytes (%) (Auto) 15 % (24-48) Monocytes (%) (Auto) 4 % (0-9) Eosinophils (%) (Auto) 0 % (0-3) Basophils (%) (Auto) 1 % (0-3) Neutrophils # (Auto) 4.3 x10^3/uL (1.8-7.7) Lymphocytes # (Auto) 0.8 x10^3/uL (1.0-4.8) Monocytes # (Auto) 0.2 x10^3/uL (0.0-1.1) Eosinophils # (Auto) 0.0 x10^3/uL (0.0-0.7) Basophils # (Auto) 0.0 x10^3/uL (0.0-0.2) Sodium Level 143 mmol/L (136-145) Potassium Level 4.9 mmol/L (3.5-5.1) Chloride Level 103 mmol/L (98-107) Carbon Dioxide Level 28 mmol/L (21-32) Anion Gap 12 (6-14) Blood Urea Nitrogen 17 mg/dL (7-20) Creatinine 0.8 mg/dL (0.6-1.0) Estimated GFR (Cockcroft-Gault) 85.3 BUN/Creatinine Ratio 21 (6-20) Glucose Level 74 mg/dL (70-99) Lactic Acid Level 1.6 mmol/L (0.4-2.0) Calcium Level 9.3 mg/dL (8.5-10.1) Total Bilirubin 0.8 mg/dL (0.2-1.0) Aspartate Amino Transf (AST/SGOT) 32 U/L (15-37) Alanine Aminotransferase (ALT/SGPT) 15 U/L (14-59) Alkaline Phosphatase 70 U/L (46-116) Total Protein 7.3 g/dL (6.4-8.2) Albumin 4.0 g/dL (3.4-5.0) Albumin/Globulin Ratio 1.2 (1.0-1.7) Lipase 37 U/L (73-393) Glucose (Fingerstick) 72 mg/dL (70-99) 65 mg/dL (70-99) I have reviewed the following NO Fever, chills No SOA, cough NO chest pain, palpation Problem List Problems Medical Problems: (1) Abdominal pain Status: Acute (2) Colitis Status: Acute Assessment/Plan gi eval pending no current surgical plans Justicifation of Admission Dx: Justifications for Admission: Justification of Admission Dx: Yes Sepsis: Infection SAMANTA AHUMADA MD 05/12/21 1548: SURGICAL PROGRESS NOTE Assessment/Plan Pt seen and examined. Agree with Ms. Espino's note Pt without new c/o abd soft cont w/u per GI. BLANCHE ESPINO FOOD SALES CLERK May 12, 2021 09:03 SAMANTA AHUMADA MD May 12, 2021 15:48
--- NOTE | 2021-05-12 09:41 | PDOC2 ---
GI CONSULT Date of Service: DATE: 05/12/21 TIME: 09:40 Reason For Consult: colitis HPI: HPI: 71 y/o female, not a good historian. Reports diffuse abdominal pain ("the whole thing") started suddenly on Wednesday night - awoke from sleep. Similar pain in past - says her whole life she's had "bowel troubles" and reports her mother used to put newspaper on the floor because she had to get down on all fours to have a bowel movement. Mother also used to give her laxatives and suppositories but she doesn't take anything for constipation now. Usual bowel pattern is 2 stools monthly. Last stool was 05/08/21 - "diarrhea" (says mushy). Describes some decreased appetite over time - "I've never liked food." Eating has no effect on pain. Also reports 80 pound weight loss in 1 year. Denies heartburn, dysphagia, n/v, diarrhea, hematochezia, and melena. Saw Dr. Vaughn in 10/2020 for h/o diverticulitis. Reported decreased appetite and 60 pound weight loss then along w/ dysphagia and dysphonia. H/o constipation mentioned - 1 stool weekly at that time. Recommendation for Metamucil, Miralax, prunes, and Senokot then. Had EGD and colonoscopy 12/2020 - normal EGD w/ normal biopsies from esophagus, stomach, and duodenum, and colonoscopy showed two adenomatous polyps and diverticulosis. LPRD mentioned in their records as well. Denies GB, liver, pancreas, and PUD history. She was referred to our office but never seen. In [facility], saw Dr. Ivelisse Bhatia in 2013 for screening colonoscopy - cannot view procedure records if done. Admitted here in 09/2020 w/ abdominal pain and nausea (did not see GI) - ?improved after stooling? - abnormal CT report w/ possible colitis/diverticulitis, treated w/ Augmentin. Summary list shows ASA, Meloxicam, ranitidine, and Miralax - she denies all. PMH: PMH: per chart and outside records: DM, HTN, HLD, CVA, multinodular goiter, memory loss, vocal cord paralysis, PVD, COPD, pneumonia, anxiety, OA, hypothyroidism, dementia, depression bladder suspension, hysterectomy, thyroidectomy FH: Family History: Cancer (prostate), CVA, DM, Other (colon polyps - ) Social History: Smoke: 1 pack per day ALCOHOL: occassional Drugs: None ROS: GEN: Denies fevers, chills, sweats HEENT: Denies blurred vision, sore throat CV: Denies chest pain RESP: Denies shortness of air, cough GI: Per HPI : Denies hematuria, dysuria ENDO: +weight loss NEURO: Denies confusion, dizziness MSK: Denies weakness, joint pain/swelling SKIN: Denies jaundice, pruritus Vitals: Vitals: Vital Signs Date Time Temp Pulse Resp B/P (MAP) Pulse Ox O2 Delivery O2 Flow Rate FiO2 05/12/21 08:53 97.8 60 18 144/78 (100) 95 Room Air 97.8 Labs: Labs: Laboratory Tests Test 05/11/21 14:45 05/11/21 15:05 05/11/21 21:36 05/12/21 07:26 Urine Collection Type Unknown Urine Color (Auto) Yellow Urine Turbidity Clear Urine pH (Auto) 5.5 (<5.0-8.0) Urine Specific [place] 1.025 (1.000-1.030) Urine Protein (Auto) 50 mg/dL (Negative) Urine Glucose (Auto)(UA) Negative mg/dL (Negative) Urine Ketones (Auto) 20 mg/dL (Negative) Urine Blood (Auto) Trace (Negative) Urine Nitrite Negative (Negative) Urine Bilirubin (Auto) Negative (Negative) Urine Urobilinogen (Auto) 2 mg/dL (Normal) Urine Leukocyte Esterase (Auto) Negative (Negative) Urine RBC 1-2 /HPF (0-2) Urine WBC 1-4 /HPF (0-4) Urine Squamous Epithelial Cells Mod /LPF Urine Bacteria Few /HPF (0-FEW) Urine Mucus Mod /LPF White Blood Count 5.3 x10^3/uL (4.0-11.0) Red Blood Count 3.65 x10^6/uL (3.50-5.40) Hemoglobin 13.6 g/dL (12.0-15.5) Hematocrit 39.7 % (36.0-47.0) Mean Corpuscular Volume 109 fL (79-100) Mean Corpuscular Hemoglobin 37 pg (25-35) Mean Corpuscular Hemoglobin Concent 34 g/dL (31-37) Red Cell Distribution Width 17.4 % (11.5-14.5) Platelet Count 281 x10^3/uL (140-400) Neutrophils (%) (Auto) 81 % (31-73) Lymphocytes (%) (Auto) 15 % (24-48) Monocytes (%) (Auto) 4 % (0-9) Eosinophils (%) (Auto) 0 % (0-3) Basophils (%) (Auto) 1 % (0-3) Neutrophils # (Auto) 4.3 x10^3/uL (1.8-7.7) Lymphocytes # (Auto) 0.8 x10^3/uL (1.0-4.8) Monocytes # (Auto) 0.2 x10^3/uL (0.0-1.1) Eosinophils # (Auto) 0.0 x10^3/uL (0.0-0.7) Basophils # (Auto) 0.0 x10^3/uL (0.0-0.2) Sodium Level 143 mmol/L (136-145) Potassium Level 4.9 mmol/L (3.5-5.1) Chloride Level 103 mmol/L (98-107) Carbon Dioxide Level 28 mmol/L (21-32) Anion Gap 12 (6-14) Blood Urea Nitrogen 17 mg/dL (7-20) Creatinine 0.8 mg/dL (0.6-1.0) Estimated GFR (Cockcroft-Gault) 85.3 BUN/Creatinine Ratio 21 (6-20) Glucose Level 74 mg/dL (70-99) Lactic Acid Level 1.6 mmol/L (0.4-2.0) Calcium Level 9.3 mg/dL (8.5-10.1) Total Bilirubin 0.8 mg/dL (0.2-1.0) Aspartate Amino Transf (AST/SGOT) 32 U/L (15-37) Alanine Aminotransferase (ALT/SGPT) 15 U/L (14-59) Alkaline Phosphatase 70 U/L (46-116) Total Protein 7.3 g/dL (6.4-8.2) Albumin 4.0 g/dL (3.4-5.0) Albumin/Globulin Ratio 1.2 (1.0-1.7) Lipase 37 U/L (73-393) Glucose (Fingerstick) 72 mg/dL (70-99) 65 mg/dL (70-99) Allergies: Coded Allergies: Penicillins (Verified Allergy, Intermediate, 05/11/21) adhesive tape (Verified Allergy, Intermediate, BURNING FEELING IN THE SKIN, 05/11/21) Medications: Current Medications Medications (Trade) Dose Ordered Sig/Vazquez Route PRN Reason Start Time Stop Time Status Last Admin Dose Admin Sodium Chloride 1,000 ml @ 999 mls/hr 1X ONCE IV 05/11/21 15:30 05/11/21 16:30 DC 05/11/21 15:51 Iohexol (Omnipaque 300 Mg/ml) 75 ml 1X ONCE IV 05/11/21 15:45 05/11/21 15:47 DC 05/11/21 16:05 Levofloxacin/ Dextrose 100 ml @ 100 mls/hr 1X ONCE IV 05/11/21 17:00 05/12/21 08:24 DC 05/11/21 17:43 Fentanyl Citrate (Fentanyl 2ml Vial) 50 mcg PRN Q2HRS PRN IVP PAIN 05/11/21 17:15 05/12/21 17:14 05/11/21 17:43 Amlodipine Besylate (Norvasc) 10 mg DAILY PO 05/12/21 09:00 05/12/21 08:46 Aspirin (Ecotrin) 81 mg DAILY08 PO 05/12/21 08:00 05/12/21 08:41 Docusate Sodium (Colace) 100 mg BID PO 05/12/21 09:00 05/12/21 08:47 Methocarbamol (Robaxin) 500 mg BID PO 05/12/21 09:00 05/12/21 08:47 Cetirizine HCl (ZyrTEC) 10 mg DAILY PO 05/12/21 09:00 05/12/21 08:42 Losartan Potassium (Cozaar) 100 mg DAILY PO 05/12/21 09:00 05/12/21 08:44 Pregabalin (Lyrica) 150 mg BID PO 05/12/21 09:00 05/12/21 08:40 Hydrochlorothiazide (Hydrodiuril) 25 mg DAILY PO 05/12/21 09:00 05/12/21 08:41 Imaging: Imaging: CT A/P IMPRESSION: Long segment of mild wall thickening involving the distal transverse colon as well as the majority of the descending colon may be from underdistention or mild colitis from a infectious or inflammatory etiology, ischemia is also included in differential. Moderate colonic diverticulosis without evidence of diverticulitis. No free pelvic fluid. PE: GEN: NAD HEENT: Atraumatic, PERRL LUNGS: CTAB HEART: RRR ABD: NABS, soft, non-distended, epigastric discomfort EXTREMITY: No edema SKIN: No rashes, no jaundice NEURO/PSYCH: A & O 3, forgetful A/P: A/P: Abd pain - recurrent issue ?diarrhea - once last week, no stools since ?decreased appetite and weight loss Abnormal CT - long segment of mild wall thickening involving the distal transverse colon as well as the majority of the descending colon may be from underdistention or mild colitis Macrocytosis - normal B12 H/o constipation, ?[facility] CRC screen, h/o adenomatous polyps - UTD (2020 @ [facility]) Diverticulosis Dementia -- Difficult history - unclear specific pain location, upper tenderness on my exam - recent 'scopes as above. Not sure she needs to continue antibiotics, will review w/ Dr. Castro. Add acid-smt technician. Long-term seems like might need more aggressive constipation treatment. AYESHA MURGUIA May 12, 2021 09:40
[2021-05-12] MEDS: DULoxetine HCL 30 MG CAPSULE.DR PO SCH (11:00)
[2021-05-12] MEDS: IPRATRPIUM/ALBUTEROL 0.5/2.5MG 3 ML NEBU. NEB SCH ×3 (11:38→21:17)
[2021-05-12] MEDS: PANTOPRAZOLE 40 MG TABLET.DR. PO SCH (17:03)
[2021-05-12] MEDS: ATORVASTATIN CALCIUM 40 MG TABLET. PO SCH (20:37)
[2021-05-12] MEDS: CYCLOBENZAPRINE 10 MG TABLET. PO SCH (20:37)
[2021-05-13 03:36] VITALS: BP 130/69
[2021-05-13] MEDS: PANTOPRAZOLE 40 MG TABLET.DR. PO SCH ×2 (06:00→09:28)
[2021-05-13 07:00] VITALS: BP 132/71
[2021-05-13] MEDS: IPRATRPIUM/ALBUTEROL 0.5/2.5MG 3 ML NEBU. NEB SCH ×4 (07:19→20:07)
[2021-05-13] MEDS: DOCUSATE SODIUM 100 MG CAPSULE. PO SCH ×2 (09:27→21:53)
[2021-05-13] MEDS: ASPIRIN ENTERIC COATED 81 MG TABLET.DR. PO SCH (09:27)
[2021-05-13] MEDS: DULoxetine HCL 30 MG CAPSULE.DR PO SCH (09:27)
[2021-05-13] MEDS: PREGABALIN 75 MG CAPSULE PO SCH ×2 (09:28→21:52)
[2021-05-13] MEDS: METHOCARBAMOL 500 MG TABLET PO SCH ×2 (09:28→21:52)
[2021-05-13] MEDS: LOSARTAN POTASSIUM 50 MG TABLET. PO SCH (09:29)
[2021-05-13] MEDS: CETIRIZINE HCL 10 MG TABLET. PO SCH (09:29)
[2021-05-13] MEDS: hydroCHLOROthiazide 25 MG TABLET PO SCH (09:30)
--- NOTE | 2021-05-13 10:02 | PDOC ---
Date of Service: DATE: 05/13/21 TIME: 09:58 Subjective: Subjective: [place] bad earlier this morning, now better. LUQ discomfort - can't elaborate. No n/v. Hasn't stooled since Sun. Tolerating clear liquids, might like to eat more. Objective: Vital Signs: Vital Signs Date Time Temp Pulse Resp B/P (MAP) Pulse Ox O2 Delivery O2 Flow Rate FiO2 05/13/21 09:29 63 132/71 05/13/21 07:19 92 Room Air 05/13/21 07:00 97.8 14 97.8 Labs: Laboratory Tests Test 05/12/21 10:28 05/12/21 16:34 05/12/21 20:27 05/13/21 08:04 Glucose (Fingerstick) 121 mg/dL (70-99) 128 mg/dL (70-99) 149 mg/dL (70-99) 111 mg/dL (70-99) PE: GEN: NAD - was sleeping, sits up and drinks water LUNGS: CTAB HEART: RRR ABD: soft, LUQ discomfort NEURO/PSYCH: A & O 3, forgetful A/P: Recurrent abdominal pain, dementia -- Unfortunately history not any more clear today. Continue PPI, stop atbx, advance diet, observe for stooling. Justicifation of Admission Dx: Justifications for Admission: Justification of Admission Dx: Yes Sepsis: Infection AYESHA MURGUIA May 13, 2021 10:02
[2021-05-13 11:00] VITALS: BP 128/87
--- NOTE | 2021-05-13 13:32 | PDOC ---
[facility] PROGRESS NOTE Date of Service DOS: 05/12 late entry Chief Complaint Chief Complaint Abdominal pain diarrhea concern for recurrent diverticulitis flare. History anxiety asthma bronchitis CHF COPD type 2 diabetes hypertension hypothyroid -1 day history abdominal pain history of diverticulitis and she says she thinks it feels like this -Imaging overall inconclusive. continue IV flagyl -GI sirgery consulted -As needed treatment for pain -Advance diet as tolerated -DVT prophylaxis -Home meds as indicated History of Present Illness History of Present Illness 05/12 Seen and examined at bedside. Patient resting in bed. Doing a little better wi th liquid diet. Pain definitely still present. Vitals/I&O Vitals/I&O: Vital Signs Date Time Temp Pulse Resp B/P (MAP) Pulse Ox O2 Delivery O2 Flow Rate FiO2 05/13/21 11:23 97 Room Air 05/13/21 11:00 66 14 128/87 (101) 05/13/21 07:00 97.8 97.8 I & O 05/12/21 05/12/21 05/13/21 15:00 23:00 07:00 Intake Total 200 ml 550 ml Balance 200 ml 550 ml Physical Exam General: Alert, Oriented X3, Cooperative Heart: Regular rate Lungs: Clear Abdomen: Soft, Other (mildly ttp lower abdomen ) Extremities: No clubbing, No cyanosis Skin: No rashes, No breakdown Labs Labs: Laboratory Tests Test 05/12/21 16:34 05/12/21 20:27 05/13/21 08:04 05/13/21 11:52 Glucose (Fingerstick) 128 mg/dL (70-99) 149 mg/dL (70-99) 111 mg/dL (70-99) 119 mg/dL (70-99) Assessment and Plan Assessmemt and Plan Problems Medical Problems: (1) Abdominal pain Status: Acute (2) Colitis Status: Acute Comment Review of Relevant I have reviewed the following items josy (where applicable) has been applied. Medications: Current Medications Medications (Trade) Dose Ordered Sig/Vazquez Route PRN Reason Start Time Stop Time Status Last Admin Dose Admin Atorvastatin Calcium (Lipitor) 40 mg QHS PO 05/12/21 21:00 05/12/21 20:37 Cyclobenzaprine HCl (Flexeril) 10 mg HS PO 05/12/21 21:00 05/12/21 20:37 Pantoprazole Sodium (Protonix) 40 mg DAILYAC PO 05/12/21 16:00 05/13/21 09:28 Levofloxacin/ Dextrose 100 ml @ 100 mls/hr Q24H IV 05/12/21 21:00 05/13/21 10:03 DC 05/12/21 20:38 Justifications for Admission Other Justification Acute abdominal pain due to acute diverticulitis DARIN SPENCE MD May 13, 2021 13:32
--- NOTE | 2021-05-13 13:36 | PDOC ---
[facility] PROGRESS NOTE Date of Service DOS: DATE: 05/13/21 TIME: 13:34 Chief Complaint Chief Complaint Abdominal pain diarrhea concern for recurrent diverticulitis flare. History anxiety asthma bronchitis CHF COPD type 2 diabetes hypertension hypothyroid -1 day history abdominal pain history of diverticulitis and she says she thinks it feels like this -Imaging overall inconclusive. continue IV flagyl -GI sirgery consulted -As needed treatment for pain -Advance diet as tolerated -DVT prophylaxis -Home meds as indicated History of Present Illness History of Present Illness 05/13 Seen and examined at bedside. She said that she was not feeling the best this morning but after eating her morning meal it improved and she does still feel much better. Advance diet as tolerated. Maybe d/c tonight or tomorrow morning if continued improvement? 05/12 Seen and examined at bedside. Patient resting in bed. Doing a little better with liquid diet. Pain definitely still present. Vitals/I&O Vitals/I&O: Vital Signs Date Time Temp Pulse Resp B/P (MAP) Pulse Ox O2 Delivery O2 Flow Rate FiO2 05/13/21 11:23 97 Room Air 05/13/21 11:00 66 14 128/87 (101) 05/13/21 07:00 97.8 97.8 I & O 05/12/21 05/12/21 05/13/21 15:00 23:00 07:00 Intake Total 200 ml 550 ml Balance 200 ml 550 ml Physical Exam General: Alert, Oriented X3, Cooperative Heart: Regular rate Lungs: Clear Abdomen: Soft, Other (mildly ttp lower abdomen ) Extremities: No clubbing, No cyanosis Skin: No rashes, No breakdown Labs Labs: Laboratory Tests Test 05/12/21 16:34 05/12/21 20:27 05/13/21 08:04 05/13/21 11:52 Glucose (Fingerstick) 128 mg/dL (70-99) 149 mg/dL (70-99) 111 mg/dL (70-99) 119 mg/dL (70-99) Assessment and Plan Assessmemt and Plan Problems Medical Problems: (1) Abdominal pain Status: Acute (2) Colitis Status: Acute Comment Review of Relevant I have reviewed the following items josy (where applicable) has been applied. Medications: Current Medications Medications (Trade) Dose Ordered Sig/Vazquez Route PRN Reason Start Time Stop Time Status Last Admin Dose Admin Atorvastatin Calcium (Lipitor) 40 mg QHS PO 05/12/21 21:00 05/12/21 20:37 Cyclobenzaprine HCl (Flexeril) 10 mg HS PO 05/12/21 21:00 05/12/21 20:37 Pantoprazole Sodium (Protonix) 40 mg DAILYAC PO 05/12/21 16:00 05/13/21 09:28 Levofloxacin/ Dextrose 100 ml @ 100 mls/hr Q24H IV 05/12/21 21:00 05/13/21 10:03 DC 05/12/21 20:38 Justifications for Admission Other Justification Acute abdominal pain due to acute diverticulitis DARIN SPENCE MD May 13, 2021 13:36
[2021-05-13 15:00] VITALS: BP 121/68
[2021-05-13] MEDS ORDERED: MAGNESIUM CITRATE 296 ML SOLUTION. PO ONE (15:30)
[2021-05-13] MEDS: metFORMIN 500 MG TABLET PO SCH (16:05)
[2021-05-13] MEDS: SENNOSIDES/DOCUSATE 8.6/50MG TABLET. PO SCH ×2 (16:06→21:52)
[2021-05-13 19:00] VITALS: BP 108/68
--- NOTE | 2021-05-13 19:42 | PDOC ---
SURGICAL PROGRESS NOTE DATE: 05/13/21 TIME: 19:40 Subjective Pt without new c/o Vital Signs Vital Signs Date Time Temp Pulse Resp B/P (MAP) Pulse Ox O2 Delivery O2 Flow Rate FiO2 05/13/21 16:00 97 Room Air 05/13/21 15:00 98.2 54 16 121/68 (85) 98.2 I&O Intake and Output 05/13/21 07:00 Intake Total 750 ml Balance 750 ml Intake Oral 550 ml IV Total 200 ml # Voids 5 General: Alert, No acute distress Abdomen: Soft, No tenderness Labs Laboratory Tests Test 05/11/21 21:36 05/12/21 07:26 05/12/21 10:28 05/12/21 16:34 Glucose (Fingerstick) 72 mg/dL (70-99) 65 mg/dL (70-99) 121 mg/dL (70-99) 128 mg/dL (70-99) Test 05/12/21 20:27 05/13/21 08:04 05/13/21 11:52 05/13/21 16:55 Glucose (Fingerstick) 149 mg/dL (70-99) 111 mg/dL (70-99) 119 mg/dL (70-99) 132 mg/dL (70-99) Laboratory Tests Test 05/12/21 20:27 05/13/21 08:04 05/13/21 11:52 05/13/21 16:55 Glucose (Fingerstick) 149 mg/dL (70-99) 111 mg/dL (70-99) 119 mg/dL (70-99) 132 mg/dL (70-99) Problem List Problems Medical Problems: (1) Abdominal pain Status: Acute (2) Colitis Status: Acute Assessment/Plan cont supportive care no surgical plans Justicifation of Admission Dx: Justifications for Admission: Justification of Admission Dx: Yes Sepsis: Infection SAMANTA AHUMADA MD May 13, 2021 19:42
[2021-05-13] MEDS: LACTOBACILLUS RHAMNOSUS GG 1 CAPSULE. PO SCH (21:52)
[2021-05-13] MEDS: CYCLOBENZAPRINE 10 MG TABLET. PO SCH (21:52)
[2021-05-13] MEDS: ATORVASTATIN CALCIUM 40 MG TABLET. PO SCH (21:52)
[2021-05-13 23:00] VITALS: BP 106/69
[2021-05-14 03:00] VITALS: BP 130/53
[2021-05-14 07:00] VITALS: BP 124/71
[2021-05-14] MEDS: IPRATRPIUM/ALBUTEROL 0.5/2.5MG 3 ML NEBU. NEB SCH ×4 (07:45→20:39)
[2021-05-14] MEDS: ASPIRIN ENTERIC COATED 81 MG TABLET.DR. PO SCH ×2 (08:00→09:13)
[2021-05-14] MEDS: metFORMIN 500 MG TABLET PO SCH ×2 (08:00→16:36)
[2021-05-14] MEDS: DULoxetine HCL 30 MG CAPSULE.DR PO SCH ×2 (09:00→09:14)
[2021-05-14] MEDS: LOSARTAN POTASSIUM 50 MG TABLET. PO SCH ×2 (09:00→09:12)
[2021-05-14] MEDS: CETIRIZINE HCL 10 MG TABLET. PO SCH ×2 (09:00→09:11)
[2021-05-14] MEDS: hydroCHLOROthiazide 25 MG TABLET PO SCH ×2 (09:00→09:14)
[2021-05-14] MEDS: SENNOSIDES/DOCUSATE 8.6/50MG TABLET. PO SCH ×2 (09:00→21:28)
[2021-05-14] MEDS: DOCUSATE SODIUM 100 MG CAPSULE. PO SCH ×3 (09:00→21:28)
[2021-05-14] MEDS: METHOCARBAMOL 500 MG TABLET PO SCH ×2 (09:00→09:15)
[2021-05-14] MEDS: PANTOPRAZOLE 40 MG TABLET.DR. PO SCH (09:11)
[2021-05-14] MEDS: LACTOBACILLUS RHAMNOSUS GG 1 CAPSULE. PO SCH ×2 (09:12→21:28)
[2021-05-14] MEDS: PREGABALIN 75 MG CAPSULE PO SCH ×2 (09:15→12:04)
--- NOTE | 2021-05-14 10:33 | PDOC ---
Date of Service: DATE: 05/14/21 TIME: 10:25 Subjective: Subjective: Feels dizzy. Tolerating diet, no n/v. Left-sided pain - vaguely described. Had diarrhea - says three times today but felt better after? 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 Vital Signs: Vital Signs Date Time Temp Pulse Resp B/P (MAP) Pulse Ox O2 Delivery O2 Flow Rate FiO2 05/14/21 09:15 74 124/71 05/14/21 08:00 Room Air 05/14/21 07:45 96 05/14/21 07:00 98.2 16 98.2 Labs: Laboratory Tests Test 05/13/21 11:52 05/13/21 16:55 05/13/21 20:53 05/14/21 07:58 Glucose (Fingerstick) 119 mg/dL (70-99) 132 mg/dL (70-99) 177 mg/dL (70-99) 124 mg/dL (70-99) PE: GEN: NAD LUNGS: CTAB HEART: RRR ABD: left-sided discomfort - muscular? NEURO/PSYCH: A & O 3, forgetful A/P: Left-sided abdominal pain Loose stools -- Tolerating diet, but ongoing pain and possible loose stools - challenging historian. Will d/w Dr. Castro. Justicifation of Admission Dx: Justifications for Admission: Justification of Admission Dx: Yes Sepsis: Infection AYESHA MURGUIA May 14, 2021 10:33
[2021-05-14 11:00] VITALS: BP 120/72
[2021-05-14 15:00] VITALS: BP 92/68
--- NOTE | 2021-05-14 15:48 | PDOC ---
SURGICAL PROGRESS NOTE DATE: 05/14/21 TIME: 15:47 Subjective Pt shemar diet, but cont abd pain Vital Signs Vital Signs Date Time Temp Pulse Resp B/P (MAP) Pulse Ox O2 Delivery O2 Flow Rate FiO2 05/14/21 15:00 97.8 86 16 92/68 (76) 96 Room Air 97.8 I&O l Intake and Output 05/14/21 07:00 Intake Total 560 ml Balance 560 ml Intake Oral 560 ml # Voids 5 # Bowel Movements 2 General: Alert, Cooperative, No acute distress Abdomen: Soft, No tenderness Labs Laboratory Tests Test 05/12/21 16:34 05/12/21 20:27 05/13/21 08:04 05/13/21 11:52 Glucose (Fingerstick) 128 mg/dL (70-99) 149 mg/dL (70-99) 111 mg/dL (70-99) 119 mg/dL (70-99) Test 05/13/21 16:55 05/13/21 20:53 05/14/21 07:58 Glucose (Fingerstick) 132 mg/dL (70-99) 177 mg/dL (70-99) 124 mg/dL (70-99) Laboratory Tests Test 05/13/21 16:55 05/13/21 20:53 05/14/21 07:58 Glucose (Fingerstick) 132 mg/dL (70-99) 177 mg/dL (70-99) 124 mg/dL (70-99) Problem List Problems Medical Problems: (1) Abdominal pain Status: Acute (2) Colitis Status: Acute Assessment/Plan abd pain cont w/u and care per GI no current surgical plans. Justicifation of Admission Dx: Justifications for Admission: Justification of Admission Dx: Yes Sepsis: Infection SAMANTA AHUMADA MD May 14, 2021 15:48
[2021-05-14] MEDS ORDERED: VENL37.56 PO (16:43)
[2021-05-14] MEDS ORDERED: SENN1TAB37 PO (16:43)
[2021-05-14] MEDS ORDERED: LISI1TAB37 PO (16:43)
[2021-05-14] MEDS ORDERED: NAPR-514 PO (16:43)
[2021-05-14] MEDS ORDERED: PANT40TA6 PO (16:43)
[2021-05-14 19:00] VITALS: BP 140/85
--- NOTE | 2021-05-14 22:24 | PDOC ---
[facility] PROGRESS NOTE Date of Service DOS: DATE: 05/14/21 TIME: 22:24 Chief Complaint Chief Complaint Abdominal pain diarrhea concern for recurrent diverticulitis flare. History anxiety asthma bronchitis CHF COPD type 2 diabetes hypertension hypothyroid -1 day history abdominal pain history of diverticulitis and she says she thinks it feels like this -Imaging overall inconclusive. continue IV flagyl -GI sirgery consulted -As needed treatment for pain -Advance diet as tolerated -DVT prophylaxis -Home meds as indicated History of Present Illness History of Present Illness 05/13 Seen and examined at bedside. She said that she was not feeling the best this morning but after eating her morning meal it improved and she does still feel much better. Advance diet as tolerated. Maybe d/c tonight or tomorrow morning if continued improvement? 05/12 Seen and examined at bedside. Patient resting in bed. Doing a little better with liquid diet. Pain definitely still present. Vitals/I&O Vitals/I&O: Vital Signs Date Time Temp Pulse Resp B/P (MAP) Pulse Ox O2 Delivery O2 Flow Rate FiO2 05/14/21 20:39 98 Room Air 05/14/21 19:00 97.9 87 14 140/85 (103) 97.9 I & O 05/13/21 05/13/21 05/14/21 15:00 23:00 07:00 Intake Total 240 ml 120 ml 200 ml Balance 240 ml 120 ml 200 ml Physical Exam General: Alert, Cooperative, No acute distress Heart: Regular rate Lungs: Clear Abdomen: Soft, No tenderness Extremities: No clubbing, No cyanosis Skin: No rashes, No breakdown Labs Labs: Laboratory Tests Test 05/14/21 07:58 05/14/21 17:32 05/14/21 18:09 Glucose (Fingerstick) 124 mg/dL (70-99) 51 mg/dL (70-99) 104 mg/dL (70-99) Assessment and Plan Assessmemt and Plan Problems Medical Problems: (1) Abdominal pain Status: Acute (2) Colitis Status: Acute Comment Review of Relevant I have reviewed the following items josy (where applicable) has been applied. Justifications for Admission Other Justification Acute abdominal pain due to acute diverticulitis DARIN SPENCE MD May 14, 2021 22:24
[2021-05-14 23:00] VITALS: BP 132/75
[2021-05-15 03:00] VITALS: BP 122/73
[2021-05-15 07:00] VITALS: BP 128/82
[2021-05-15] MEDS: ASPIRIN ENTERIC COATED 81 MG TABLET.DR. PO SCH (08:00)
[2021-05-15] MEDS: IPRATRPIUM/ALBUTEROL 0.5/2.5MG 3 ML NEBU. NEB SCH ×2 (08:42→12:00)
[2021-05-15] MEDS: DOCUSATE SODIUM 100 MG CAPSULE. PO SCH (08:47)
[2021-05-15] MEDS: LOSARTAN POTASSIUM 50 MG TABLET. PO SCH (08:48)
[2021-05-15] MEDS: LACTOBACILLUS RHAMNOSUS GG 1 CAPSULE. PO SCH (08:55)
[2021-05-15] MEDS: SENNOSIDES/DOCUSATE 8.6/50MG TABLET. PO SCH (08:55)
[2021-05-15] MEDS: hydroCHLOROthiazide 25 MG TABLET PO SCH (08:55)
[2021-05-15] MEDS: CETIRIZINE HCL 10 MG TABLET. PO SCH (08:55)
[2021-05-15] MEDS ORDERED: VENLAFAXINE 50 MG TABLET. PO SCH (09:00)
--- NOTE | 2021-05-15 09:59 | PDOC ---
SURGICAL PROGRESS NOTE DATE: 05/15/21 TIME: 09:58 Subjective resting still left side pain, overall improved no stool today ROS No chest pain, no palpations No fevers, chills No SOA, cough Vital Signs Vital Signs Date Time Temp Pulse Resp B/P (MAP) Pulse Ox O2 Delivery O2 Flow Rate FiO2 05/15/21 08:48 71 128/82 05/15/21 08:42 98 Room Air 05/15/21 07:00 98.4 14 98.4 I&O Intake and Output 05/15/21 07:00 Intake Total 400 ml Balance 400 ml Intake Oral 400 ml # Voids 3 General: Alert, Oriented X3, Cooperative HEENT: Atraumatic, PERRLA Lungs: Clear to auscultation, Normal air movement Heart: Regular rate, Normal S1, Normal S2 Abdomen: Soft, Other (mild ttp LUQ) Labs Laboratory Tests Test 05/13/21 11:52 05/13/21 16:55 05/13/21 20:53 05/14/21 07:58 Glucose (Fingerstick) 119 mg/dL (70-99) 132 mg/dL (70-99) 177 mg/dL (70-99) 124 mg/dL (70-99) Test 05/14/21 17:32 05/14/21 18:09 05/15/21 07:51 Glucose (Fingerstick) 51 mg/dL (70-99) 104 mg/dL (70-99) 97 mg/dL (70-99) Laboratory Tests Test 05/14/21 17:32 05/14/21 18:09 05/15/21 07:51 Glucose (Fingerstick) 51 mg/dL (70-99) 104 mg/dL (70-99) 97 mg/dL (70-99) Problem List Problems Medical Problems: (1) Abdominal pain Status: Acute (2) Colitis Status: Acute Assessment/Plan no surgical plans Justicifation of Admission Dx: Justifications for Admission: Justification of Admission Dx: Yes Sepsis: Infection BLANCHE ESPINO APRN May 15, 2021 09:59
--- NOTE | 2021-05-15 10:04 | PDOC ---
Date of Service: DATE: 05/15/21 TIME: 10:02 Subjective: Subjective: Feels better, wants to get home to care for her mother. Tolerating diet, pain better, hasn't stooled today. Objective: Objective: D/w nurse - hasn't complained. D/w surgery. Vital Signs: Vital Signs Date Time Temp Pulse Resp B/P (MAP) Pulse Ox O2 Delivery O2 Flow Rate FiO2 05/15/21 08:48 71 128/82 05/15/21 08:42 98 Room Air 05/15/21 07:00 98.4 14 98.4 Labs: Laboratory Tests Test 05/14/21 17:32 05/14/21 18:09 05/15/21 07:51 Glucose (Fingerstick) 51 mg/dL (70-99) 104 mg/dL (70-99) 97 mg/dL (70-99) PE: GEN: NAD LUNGS: CTAB HEART: RRR ABD: soft, non-tender NEURO/PSYCH: A & O 3, forgetful A/P: Left-sided abdominal pain, loose stools - better -- Dc per primary, follow-up PRN. Probably a good idea to continue PPI (though expect compliance will be questionable). Justicifation of Admission Dx: Justifications for Admission: Justification of Admission Dx: Yes Sepsis: Infection AYESHA MURGUIA May 15, 2021 10:04
[2021-05-15 11:11] VITALS: BP 124/80
--- NOTE | 2021-06-10 12:39 | PDOC3 ---
[facility]-Discharge Summary Date of Admission: Date of Admission: May 11, 2021 Date of Discharge: Date of Discharge: May 15, 2021 Admission Diagnosis: Admitting Diagnosis: diverticulitis Consults: Consults: GI, surgery Hospital Course: Hospital Course: Chief Complaint Abdominal pain diarrhea concern for recurrent diverticulitis flare. History anxiety asthma bronchitis CHF COPD type 2 diabetes hypertension hypothyroid -1 day history abdominal pain history of diverticulitis and she says she thinks it feels like this -Imaging overall inconclusive. continue IV flagyl -GI sirgery consulted -As needed treatment for pain -Advance diet as tolerated -DVT prophylaxis -Home meds as indicated History of Present Illness History of Present Illness 05/15 Evaluate examined at bedside. Doing much better with p.o. intake. Abdominal pain improving. Discharge home today. Greater than 30 minutes spent on discharge. Discussed with GI team 05/13 Seen and examined at bedside. She said that she was not feeling the best this morning but after eating her morning meal it improved and she does still feel much better. Advance diet as tolerated. Maybe d/c tonight or tomorrow morning if continued improvement? 05/12 Seen and examined at bedside. Patient resting in bed. Doing a little better with liquid diet. Pain definitely still present. Disposition: Disposition/Orders: D/C to Home Activity: Activity: Resume previous activity Diet: Diet: other (adat) Medications: Home Meds Active Scripts Losartan/Hydrochlorothiazide (HYZAAR 100-25 TABLET) 1 Each Tablet, 1 TAB PO DAILY, #30 TAB 5 Refills Prov:ALONZO FLOYD MD 06/04/15 Reported Medications Sennosides/Docusate Sodium (SENNOSIDES-DOCUSATE SODIUM TAB) 1 Each Tablet, 1 TAB PO HS for constipation 05/14/21 Naproxen (NAPROXEN) 500 Mg Tablet, 1 TAB PO BID for ? 05/14/21 Pantoprazole Sodium (Pantoprazole Sodium) 40 Mg Tablet.dr, 1 TAB PO DAILY for gerd 05/14/21 Venlafaxine Hcl (VENLAFAXINE HCL) 37.5 Mg Tablet, 1 TAB PO BID for antideprssant 05/14/21 Aspirin (ASPIR 81) 81 Mg Tablet.dr, 81 MG PO DAILY, TAB 08/10/13 Scheduled Aspirin (Aspir 81), 81 MG PO DAILY, (Reported) Losartan/Hydrochlorothiazide (Hyzaar 100-25 Tablet), 1 TAB PO DAILY Naproxen (Naproxen), 1 TAB PO BID, (Reported) Pantoprazole Sodium (Pantoprazole Sodium), 1 TAB PO DAILY, (Reported) Sennosides/Docusate Sodium (Sennosides-Docusate Sodium Tab), 1 TAB PO HS, (Reported) Venlafaxine Hcl (Venlafaxine Hcl), 1 TAB PO BID, (Reported) Justicifation of Admission Dx: Justifications for Admission: Justification of Admission Dx: Yes Sepsis: Infection DARIN SPENCE MD June 10, 2021 12:39
== END 2021-05-15 12:50 | disposition home or self-care (01) | DRG 871 ==
LOC: ER 13:09 → ED HOLD 18:27 → 4 NORTH 18:27
PROVIDERS: ADMIT Student in an Organized Health Care Education/Training Program; ATTEND Student in an Organized Health Care Education/Training Program
DX: A41.9 Sepsis, unspecified organism (principal); E43 Unspecified severe protein-calorie malnutrition; K57.32 Diverticulitis of large intestine without perforation or abscess without bleeding; K52.9 Noninfective gastroenteritis and colitis, unspecified; E04.2 Nontoxic multinodular goiter; E11.51 Type 2 diabetes mellitus with diabetic peripheral angiopathy without gangrene; E78.5 Hyperlipidemia, unspecified; E89.0 Postprocedural hypothyroidism; F03.90 Unspecified dementia, unspecified severity, without behavioral disturbance, psychotic disturbance, mood disturbance, and anxiety; F17.210 Nicotine dependence, cigarettes, uncomplicated; F32.A Depression, unspecified; F41.9 Anxiety disorder, unspecified; I11.0 Hypertensive heart disease with heart failure; I50.9 Heart failure, unspecified; J38.00 Paralysis of vocal cords and larynx, unspecified; K59.00 Constipation, unspecified; K74.60 Unspecified cirrhosis of liver; M79.7 Fibromyalgia; M81.0 Age-related osteoporosis without current pathological fracture; Z82.3 Family history of stroke; Z82.49 Family history of ischemic heart disease and other diseases of the circulatory system; Z82.5 Family history of asthma and other chronic lower respiratory diseases; Z83.3 Family history of diabetes mellitus; Z83.71 Family history of colonic polyps; Z86.73 Personal history of transient ischemic attack (TIA), and cerebral infarction without residual deficits; Z90.710 Acquired absence of both cervix and uterus; K21.9 Gastro-esophageal reflux disease without esophagitis; M19.90 Unspecified osteoarthritis, unspecified site; Z88.0 Allergy status to penicillin; Z88.8 Allergy status to other drugs, medicaments and biological substances; R13.10 Dysphagia, unspecified
CPT/HCPCS: 36415; 74177; 80053; 81001; 82962; 83605; 83690; 85025; 94640; 94760; 96361; 96365; J1956; J3010; J3490; J7030; Q9967; 97116-GP; 99285-25; G0378